=== PATIENT | male | born 1940 | race Caucasian/White ===

== ENCOUNTER → 2016-11-24 14:18 | Outpatient (CLI) | payer MEDICARE, OTHER ==
[2013-06-26 05:55] VITALS: BMI 23.6
[~2016-11-24 14:18] MED LIST: ASPIRIN 81 MG E81 MG PO; CALCIUM 600+D T1 TA1 PO; DOCUSATE S50 MG/5 ML PO; GLUCOSAMINE HC500 MG PO; MULTI-DAY VITAM1 TAB PO; NORCO 10/325 TA1 TA1 PO
== END | disposition home or self-care (01) ==
LOC: D.MRI 14:18
DX: M25.512 Pain in left shoulder (principal)

== ENCOUNTER 2017-08-16 05:14 | Day surgery (SDC) | payer MEDICARE, OTHER ==
[2017-08-13 11:41] LABS: BASOPHILS 0.4 % (0-2); EOSINOPHILS 1.4 % (0-7); HEMATOCRIT 47.5 % (42.0-54.0); HEMOGLOBIN 16.4 g/dL (13.5-17.5); IMMATURE GRANULOCYTES 0.2 % (0-5); LYMPHOCYTES 30.4 % (15-50); MCH 32.9 pg (26.0-34.0); MCHC 34.5 g/dL (31.0-37.0); MCV 95.4 fL (80.0-100.0); MEAN PLATELET VOLUME 9.3 fL (7.4-10.4); MONOCYTES 8.3 % (2-11); NEUTROPHILS 59.3 % (40-80); PLATELET COUNT 183 10x3/uL (130-400); RBC 4.98 10x6/uL (4.20-6.10); RDW 13.3 % (11.5-14.5); WBC 5.1 10x3/uL (4.8-10.8)
[2017-08-13 11:49] LABS: APTT 28.7 SECONDS (22.8-39.4); INR 1.03 (0.85-1.17); PROTIME 13.1 SECONDS (11.6-15.0)
[~2017-08-16] VITALS: Ht 175.3 cm; Wt 72.6 kg
--- NOTE | ~2017-08-16 | OP ---
PATIENT NAME: FRANCISCO SALAS MEDICAL RECORD: [id number] :44 LOCATION:ACE ADMISSION DATE: SURGEON: ANNA CUNNINGHAM MD DATE OF OPERATION: 08/16/2017 PREOPERATIVE DIAGNOSIS: Trigger finger, bilateral long finger. POSTOPERATIVE DIAGNOSIS: Trigger finger, bilateral long finger. PROCEDURE: Bilateral long finger trigger finger releases. SURGEON: Anna Cunningham MD ANESTHESIA: General. INTRAOPERATIVE COMPLICATIONS: None. SUMMARY OF PATHOLOGIC FINDINGS: The patient had a tight A1 calin in bilateral fingers consistent with diagnosis of bilateral trigger fingers. OPERATIVE SUMMARY IN DETAIL: After obtaining the appropriate orthopedic consents as well as anesthetic consultation, evaluation and clearance, the patient was brought to the operating room and placed on the operating table in supine position. After adequate general laryngeal mask was administered, tourniquet was placed about the proximal aspect of the left upper extremity. The Esmarch was used as a tourniquet on the right side. Bilateral upper extremities were prepped and draped in routine sterile fashion. Left arm was elevated and exsanguinated, tourniquet inflated to 350 mmHg. An incision was made directly over the A1 calin. The incision was taken directly down to the A1 calin and under direct visualization, the A1 calin was incised in its entirety, resulting in excellent excursion without triggering. The wound was irrigated and closed with 4-0 Prolene. The area was locally anesthetized with 0.25% Marcaine plain. Attention was then turned to the right upper extremity. Esmarch was then used as a tourniquet. The arm was exsanguinated. The Esmarch was clipped and again an incision was made directly over the A1 calin of the right long finger and taken down to the level of the A1 calin and under direct visualization, it was incised in its entirety as well, again good excursion was achieved without any snapping. Having completed this, this wound was likewise closed with 4-0 Prolene in interrupted fashion. The area was locally infiltrated with 0.25% Marcaine plain. Sterile dressings were applied to both upper extremities. Bilateral tourniquets were released. The patient was awakened and taken to recovery room in stable condition. All final needle and sponge counts were correct. TRANSINT:[id number] Voice Confirmation ID: [id number] DOCUMENT ID: [id number] ANNA CUNNINGHAM MD at 1518 CC: [id number] DICTATION DATE: 08/16/17 0816 LEASE EXAMINER: 08/16/17 1506 [facility] [place] 08/16/17 [place] [id number] [place] [address]
[~2017-08-16 05:14] MED LIST changes: +TESTOSTERON200 MG/ML IM
[2017-08-16 06:20] VITALS: BP 128/71; Ht 175.3 cm; Wt 72.6 kg
[2017-08-16] MEDS ORDERED: HYDROCODONE-APA1 TAB PO (08:14)
== END 2017-08-16 10:12 | disposition home or self-care (01) ==
LOC: D.OPS 05:14 → D.PAN 07:30 → D.OPS 10:12
PROVIDERS: Anesthesiology
DX: M65.332 Trigger finger, left middle finger (principal); M65.331 Trigger finger, right middle finger; Z01.812 Encounter for preprocedural laboratory examination

== ENCOUNTER 2017-12-06 11:35 | Inpatient (IN) | payer MEDICARE, OTHER ==
[~2017-12-06] VITALS: Ht 175.3 cm; Wt 70.8 kg
--- NOTE | ~2017-12-06 | HEMODYNAMI ---
PATIENT:FRANCISCO SALAS MEDICAL RECORD: [id number] : 44 [id number] ADMISSION DATE: 12/06/17 Generatedon:12/07/20178:33 Patient name: FRANCISCO SALAS Patient #: [id number] : 1940 Date of study: 12/07/2017 Page: Of Hemodynamic Procedure Report Patient Data Patient Demographics Procedure consent was obtained First Name: FRANCISCO Gender: Male Last Name: MARITZA : 1940 [facility] Initial: ERICH Age: 77 year(s) Patient #: [id number] Race: SSN: [id number] Additional ID: [id number] Contact details [address]: [address] [place] [address] State: [place] City: [place] Zip code: [address] Admission Admission Data Admission Date: 12/06/2017 Admission Time: 17:21 Arrival Date: 12/07/2017 Arrival Time: 17:21 Admit Source: Other Insurance Payor: Medicare Room #: D.2121 Procedure Procedure Types Cath Procedure Diagnostic Procedure [facility] w/Coronaries Sedation Charges Moderate Sedation up to 15 minutes PCI Procedure Coronary Stent Coronary Stent Initial Procedure Description Procedure Date Procedure Date: 12/07/2017 Procedure Start Time: 8:11 Procedure End Time: 8:31 Procedure Staff Name Function Gabino Ashby MD Performing Physician Adelita Levine RN Nurse Erica Boone RT Scrub Christiane Velasquez RT Monitor Indication Angina Procedure Data Cath Procedure Fluoroscopy Diagnostic fluoroscopy Total fluoroscopy Time: 5.7 time: 5.7 min min Diagnostic fluoroscopy Total fluoroscopy dose: 657 dose: 657 mGy mGy Contrast Material Contrast Material Type Amount (ml) Isovue 300 68 Entry Location Entry Primary Successful Side Size Upsize Upsize Entry Closure Neves ccessful Closure Location (Fr) 1 (Fr) 2 (Fr) Remarks Device Remarks Radial Right 6 Fr Mechanical artery Short Compression Estimated blood loss: 5 ml Diagnostic catheters Device Type Used For End Catheter Placement DIAGNOSTIC Kobe 110cm Multi-vessel 5Fr catheter ([id number]) Angiography Procedure Complications No complications Procedure Medications Medication Administration Route Dosage Oxygen NC 2 l/min Lidocaine 2% added to field 20 Heparin Flush Bag added to field 2 bags (1000units/500ml NS) 0.9% NaCl I.V. 100 ml/hr Cardizem I.V. drip 5 mg/hr (125mg/125ml NS) Radial Cocktail I.A. 1 syringe (Verapomil 2mg/Nitro 400mcg/Heparin 1500units) Versed I.V. 1 mg Fentanyl I.V. 50 mcg Versed I.V. 1 mg Fentanyl I.V. 50 mcg Versed I.V. 0.5 mg Fentanyl I.V. 50 mcg Heparin Bolus I.V. 7000 units Plavix P.O. 600 mg Hemodynamics Rest Heart Rate: 65 (bpm) Pressure Samples Time Site Value (mmHg) Purpose Heart Use Rate(bpm) 8:14 LV 148/21,41 Snapshot 69 8:15 AO 141/75(103) Pullback 57 Gradients Valve Time Site Site 2 Mean SEP/DFP Peak To Heart Use 1 (mmHg) (sec/min) Peak Rate (mmHg) (bpm) Aortic 8:15 LV AO 6 5 57 141/75(103) Calculations Valve P-P Mean Valve Index Valve Source Name Gradient Area Flow (cm2) Aortic 6 6 Snapshots Pre Cath Intra NCS Post Cath Vital Signs Time Heart Resp SPO2 etCO2 NIBP Rhythm Pain Sedation Rate (ipm) (%) (mmHg) (mmHg) Status Level (bpm) 7:57:31 60 16 97 0 122/62(83) NSR 0 (11) 10(A) , No pain 8:01:45 62 15 98 33 119/56(99) NSR 0 (11) 10(A) , No pain 8:05:57 56 13 93 30 110/56(87) NSR 0 (11) 10(A) , No pain 8:10:07 60 14 97 15 118/57(99) NSR 0 (11) 9(A) , No pain 8:14:21 67 16 97 24.7 113/53(95) NSR 0 (11) 9(A) , No pain 8:18:33 61 15 92 28.5 108/51(79) NSR 0 (11) 9(A) , No pain 8:22:45 65 14 94 33 107/48(88) NSR 0 (11) 9(A) , No pain 8:26:56 64 15 95 31.5 113/48(91) NSR 0 (11) 9(A) , No pain 8:31:08 71 15 98 24.7 118/55(85) NSR 0 (11) 10(A) , No pain Medications Time Medication Route Dose Verified Delivered Reason Notes Effectiveness by by 7:51:55 Cardizem I.V. 5 mg/hr Gabino Buffie Per physician rajinder nued (125mg/125ml NS) drip Rubens Levine RN from floor via smart pump to iv left arm. 7:54:35 Oxygen NC 2 l/min Gabino Buffie used for Rubens Levine RN procedure 7:54:41 Lidocaine 2% added 20ml Gabino Gabino for local to vial Rubens Ashby MD anesthetic field 7:54:47 Heparin Flush added 2 bags Gabino Gabino used for Bag to Rubens Ashby MD procedure (1000units/500ml field NS) 7:54:55 0.9% NaCl I.V. 100 Gabino Buffie Per physician Per n ew ml/hr Rubens Levine RN IV access to rt forearm. 8:05:05 Fentanyl I.V. 50 mcg Gabino Buffie for sedation Rubens Levine RN 8:05:57 Versed I.V. 1 mg Gabino Buffie for sedation Rubens Levine RN 8:13:17 Radial Cocktail I.A. 1 Gabino Gabino for (Verapomil syringe Rubens Ashby MD vasodilation 2mg/Nitro 400mcg/Heparin 1500units) 8:13:35 Versed I.V. 1 mg Gabino Buffie for sedation Rubens Levine RN 8:13:39 Fentanyl I.V. 50 mcg Gabino Buffie for sedation Rubens Levine RN 8:21:50 Versed I.V. 0.5 mg Gabino Buffie for sedation Rubens Levine RN 8:21:54 Fentanyl I.V. 50 mcg Gabino Buffie for sedation Rubens Levine RN 8:22:38 Heparin Bolus I.V. 7,000 Gabino Buffie for verif ied units Ashby MD Levine RN anticoagulation with dr ashby 8:32:24 Plavix P.O. 600 mg Gabino Ureña for Rubens Levine RN antiplatelet therapy Procedure Log Time Note 7:29:59 Diagnostic Cath Status : Elective 7:30:17 Indication : Angina 7:30:22 Christiane Ron RT(R) sent for patient. Start room use. 7:30:24 Time tracking: Regular hours (M-F 7:00 - 5:00) 7:30:29 Plan of Care:Hemodynamics will remain stable., Cardiac rhythm will remain stable., Comfort level will be maintained., Respiratory function will remain adequate., Patient/ family verbilizes understanding of procedure., Procedure tolerated without complication., Recovers from procedure without complications.. 7:30:50 Informed consent obtained and on chart 7:32:53 Admit Source: Other 7:32:55 Arrival Date: 12/07/2017 5:21:00 PM 7:33:08 Insurance Payor : Medicare 7:34:05 Patient received from Med II to [facility] 2 Alert and oriented. Tansferred to table in Supine position. 7:46:19 Warm blankets applied, and marbin hugger turned on for patient comfort. 7:46:20 Correct patient and procedure confirmed by team. 7:50:02 ECG and BP/O2 sat monitors applied to patient. 7:50:08 H&P Date Dictated: 12/07/2017 New H&P dictated by physician.. 7:50:09 Pre-procedure instructions explained to patient. 7:50:10 Pre-op teaching completed and patient verbalized understanding. 7:50:12 Family in patients room. 7:50:14 Patient NPO since Midnight. 7:50:17 Is the patient allergic to Iodine/contrast media? No. 7:50:18 Was the patient premedicated? No 7:50:23 Is patient on blood thinner?No 7:50:25 Patient diabetic? No. 7:50:29 Previous problem with sedation/anesthesia? No ? 7:50:31 Snore? Yes 7:50:32 Sleep apnea? No 7:50:33 Deviated septum? No 7:50:34 Opens mouth fully? Yes 7:50:35 Sticks out tongue? Yes 7:50:37 Airway obstruction? No ? 7:50:41 Dentures? No ? 7:50:46 Pre procedure: right dorsailis pedis pulse 1+ Palpable, but thready & weak; easily obliterated 7:50:48 Pre procedure: left dorsailis pedis pulse 1+ Palpable, but thready & weak; easily obliterated 7:50:50 Patient pain scale 0/10 ?. 7:51:16 IV patent on arrival in right forearm with 0.9% NaCl at O. 7:51:18 Lab results completed and on chart. 7:51:23 Right Radial & Right Groin area was prepped with chlora-prep and draped in sterile fashion 7:51:24 Alarms reviewed by R. N. 7:51:25 Sharps counted by scrub and verified by R.N. 7:51:55 Cardizem (125mg/125ml NS) 5 mg/hr I.V. drip was administered by Adelita Levine RN; Per physician; continued from floor via smart pump to iv left arm. 7:54:35 Oxygen 2 l/min NC was administered by Adelita Levine RN; used for procedure; 7:54:41 Lidocaine 2% 20ml vial added to field was administered by Gabino Ashby MD; for local anesthetic; 7:54:47 Heparin Flush Bag (1000units/500ml NS) 2 bags added to field was administered by Gabino Ashby MD; used for procedure; 7:54:55 0.9% NaCl 100 ml/hr I.V. was administered by Adelita Levine RN; Per physician; Per new IV access to rt forearm. 7:56:22 Vital chart was started 7:56:24 Baseline sample Acquired. 8:02:44 Rhythm: sinus rhythm 8:02:49 Full Disclosure recording started 8:02:55 Physician arrived 8:02:55 --------ALL STOP TIME OUT------ 8:02:55 Final Timeout: patient, procedure, and site verified with staff and physician. All members of the team are in agreement. 8:02:57 Right Radial & Right Groin site verified by team. 8:03:00 Physical assessment completed. ASA score P 2 - A patient with mild systemic disease as per Gabino Ashby MD. 8:03:03 Sedation plan: IV Moderate Sedation Medication:Versed, Fentanyl 8:03:11 Use device set Radial Dx or PCI 8:03:12 ACIST Syringe (93220) opened to sterile field. 8:03:13 Medline Cath Pack ([id number]) opened to sterile field. 8:03:13 Bag Decanter (2001S) opened to sterile field. 8:03:14 DIAGNOSTIC WIRE .035 260cm J wire (782936) opened to sterile field. 8:03:14 ACIST Hand Control (34341) opened to sterile field. 8:03:15 ACIST Manifold (45618) opened to sterile field. 8:03:15 Tegaderm 4 x 4 (1626W) opened to sterile field. 8:03:16 MBrace Wrist Support ([id number]) opened to sterile field. 8:03:17 NEEDLE Cook 21G 4cm Radial (V50432) opened to sterile field. 8:03:19 SHEATH 6Fr Prelude Radial ([id number]) opened to sterile field. 8:05:05 Fentanyl 50 mcg I.V. was administered by Adelita Levine RN; for sedation; 8:05:57 Versed 1 mg I.V. was administered by Adelita Levine RN; for sedation; 8:06:46 IV CATHETER 22g opened to sterile field. 8:10:36 Procedure started. 8:11:05 Local anesthetic to right radial artery with Lidocaine 2% by Gabino Ashby MD.INITIAL ACCESS ONLY 8:11:35 A 6 Fr Short sheath was inserted into the Right Radial artery 8:11:38 Baseline sample Acquired. 8:13:17 Radial Cocktail (Verapomil 2mg/Nitro 400mcg/Heparin 1500units) 1 syringe I.A. was administered by Gabino Ashby MD; for vasodilation; 8:13:25 A DIAGNOSTIC Kobe 110cm 5Fr catheter (373052) was advanced over the wire and used for Multi-vessel Angiography. 8:13:35 Versed 1 mg I.V. was administered by Adelita Levine RN; for sedation; 8:13:39 Fentanyl 50 mcg I.V. was administered by Adelita Levine RN; for sedation; 8:15:00 LV hemodynamics recorded. 8:15:01 LV gram done using CALDERON 8:15:04 Injector settings: Ml/sec: 5, Volume: 15, 8:15:36 EF : 50 % 8:16:55 LCA angiography performed. 8:18:37 RCA angiography performed. 8:18:45 Injector settings: Ml/sec: 3, Volume: 6, 8:19:42 Catheter removed. 8:21:50 Versed 0.5 mg I.V. was administered by Adelita Levine RN; for sedation; 8::54 Fentanyl 50 mcg I.V. was administered by Adelita Levine RN; for sedation; 8:22:05 GUIDE 6FR AR 1.0 catheter (OC0AP40) opened to sterile field. 8:22:17 INFLATOR Merit BasixCompak (RE5052) opened to sterile field. 8:22:18 BMW 300cm [place] 2 J wire ([id number]) opened to sterile field. 8:22:25 TUBING High Pressure Extension Tubing (Rubens) ([id number]) opened to sterile field. 8:22:38 Heparin Bolus 7,000 units I.V. was administered by Adelita Levine RN; for anticoagulation; verified with dr ashby 8:22:45 Proceeding to intervention. 8:22:52 6 Fr ar 1 guide catheter was inserted over the wire 8:22:56 bmw wire advanced. 8:23:40 Wire advanced across lesion. 8:27:40 Place stent Inflation Number: 1 A INTEGRITY OTW 3.5 X 26 stent ([id number]) was prepped and advanced across the Prox RCA. The stent was deployed at 14 JULIANNE for 0:10 (min:sec). 8:28:51 Stent catheter was removed intact over wire. 8:28:53 Wire removed. 8:28:54 Guide catheter removed. 8:29:00 TR BAND Standard ([id number]) opened to sterile field. 8:29:11 Sheath removed intact; hemostasis achieved with Mechanical Compression to the Right Radial artery. 8:29:13 Procedure ended.(Physican Out) 8:29:24 Fluoroscopy time 05.70 minutes. 8:29:28 Fluoroscopy dose: 657 mGy 8:29:28 Flurop Dose total: 657 8:29:33 Contrast amount:Isovue 300 68ml. 8:29:34 Sharps counted by scrub and verified by R.N. 8:29:38 TR band inflated with 10cc of air. 8:29:40 Insertion/operative site no bleeding no hematoma. 8:30:14 Post right radial artery:stable 8:30:15 Post Procedure Pulses reassessed and unchanged 8:30:18 Post procedure rhythm: unchanged. 8:30:21 Estimated blood loss: 5 ml 8:30:22 Post procedure instruction explained to patient.Patient verbalizes understanding. 8:30:23 Patient needs reinforcement of post procedure teaching. 8:30:47 Procedure type changed to Cath procedure, Diagnostic procedure, LHC, LHC w/Coronaries, Sedation Charges, Moderate Sedation up to 15 minutes, PCI procedure, Coronary Stent, Coronary Stent Initial 8:30:47 Procedure and supply charges have been captured, reviewed, submitted and are correct. 8:30:52 Procedure Complication : No complications 8:30:54 Vital chart was stopped 8:30:55 See physician's report for complete and final results. 8:31:31 Report given to [facility]. 8:31:34 Patient transfered to [facility] with Stretcher. 8:31:36 Procedure ended. 8:31:36 Full Disclosure recording stopped 8:31:47 ACC-PCI Only Patient was given prescriptions, or instructed by Gabino Ashby MD to start/continue the following medications upon discharge: Plavix 8:31:49 End room use (Document Last) 8:32:24 Plavix 600 mg P.O. was administered by Adelita Levine RN; for antiplatelet therapy; Intervention Summary Intervention Notes Time ActionType Lesion and Equipment Action# Pressure Duration Attributes Used 8:27:40 Place stent Prox RCA INTEGRITY 1 14 00:10 OTW 3.5 X 26 stent ([id number]) Device Usage Item Name Manufacture Quantity Catalog Number Hospital Part Current M inimal Lot# / Charge Number Stock Stock Serial# Code ACIST Syringe Acist 1 25634 000746 807822 097426 2 0 (56986) Medical Systems Inc Medline Cath Cardinal 1 [id number] 853787 10660 419082 5 Pack Health (YGZV72451) Bag Decanter Microtek 1 530450 37050 771925 5 () Medical Inc. DIAGNOSTIC WIRE St Dylan 1 607101 709021 251563 046660 3 0 .035 260cm J wire (943591) ACIST Hand Acist 1 58479 937448 164129 024393 5 Control (24227) Medical Systems Inc ACIST Manifold Acist 1 53369 472835 840203 889657 5 (34671) Medical Systems Inc Tegaderm 4 x 4 3M 1 1626W 897422 605552 750006 5 (1626W) MBrace Wrist Advanced 1 140-0250-00 174222 86198 267409 5 Support Vascular (082450316) Dynamics NEEDLE Cook 21G Cook Medical 1 S12562 997862 351524 546371 5 4cm Radial (T72213) SHEATH 6Fr Merit 1 [id number] 350296 838332 770739 5 Prelude Radial Medical ([id number]) IV CATHETER 22g B. Mo 1 3255180-42 503728 008534 201017 5 DIAGNOSTIC Terumo 1 405023 165914 132421 041411 5 Kobe 110cm 5Fr catheter (625883) GUIDE 6FR AR Medtronic 1 TY5EO64 143865 70281 509086 1 1.0 catheter (YK5PL47) INFLATOR Merit Merit 1 NY6565 261361 601689 243414 1 5 FilmLoopAcadia HealthcareGLWL Research Medical (AY9404) BMW 300cm Shrestha 1 [id number] 930645 662251 207579 5 [place] 2 J Vascular wire (3171296K) TUBING High Merit 1 [id number] 196967 48701 103882 1 0 Pressure Medical Extension Tubing (Ashby) (CZ3302Z) INTEGRITY OTW Medtronic 1 [id number] 773057 487248 4 [id number] 3.5 X 26 stent ([id number]) TR BAND Terumo 1 [id number] 002442 765558 866449 4 0 Standard (YFL36EIJ) Signature Audit [place] Stage Time Signature Unsigned Intra-Procedure 12/07/2017 Christiane Velasquez 8:33:35 AM RT(R) Signatures Monitor : Christiane Velasquez RT Signature : Date : Time : [facility] [address] [facility], [facility]
[~2017-12-06 11:35] MED LIST changes: +HYDROCODONE-APA1 TAB PO
[2017-12-06 12:24] LABS: BASOPHILS 0.4 % (0-2); EOSINOPHILS 1.2 % (0-7); HEMATOCRIT 53.1 % (42.0-54.0); HEMOGLOBIN 18.7 g/dL (13.5-17.5); IMMATURE GRANULOCYTES 0.3 % (0-5); LYMPHOCYTES 17.6 % (15-50); MCH 33.3 pg (26.0-34.0); MCHC 35.2 g/dL (31.0-37.0); MCV 94.7 fL (80.0-100.0); MEAN PLATELET VOLUME 9.7 fL (7.4-10.4); MONOCYTES 10.4 % (2-11); NEUTROPHILS 70.1 % (40-80); PLATELET COUNT 202 10x3/uL (130-400); RBC 5.61 10x6/uL (4.20-6.10); RDW 12.6 % (11.5-14.5); WBC 7.3 10x3/uL (4.8-10.8)
[2017-12-06 12:32] LABS: APTT 30.6 SECONDS (22.8-39.4); INR 0.99 (0.85-1.17); PROTIME 12.7 SECONDS (11.6-15.0)
[2017-12-06 12:33] LABS: D-DIMER-QUANTITATIVE 1.3 ug/mLFEU (0.20-0.54)
[2017-12-06 12:42] LABS: ALBUMIN 3.8 g/dL (3.4-5.0); ALKALINE PHOSPHATASE 84 U/L (46-116); ALT (SGPT) 23 U/L (10-68); BILIRUBIN - TOTAL 0.76 mg/dL (0.2-1.3); CALC OSMOLALITY 282 mosm/kg (275-300); CALCIUM 9.3 mg/dL (8.5-10.1); CARBON DIOXIDE 30.1 mmol/L (21.0-32.0); CHLORIDE - SERUM 102 mmol/L (98-107); CREATININE - SERUM 1.2 mg/dL (0.6-1.3); GLUCOSE 100 mg/dL (74-106); POTASSIUM - SERUM 4.4 mmol/L (3.5-5.1); PROTEIN - SERUM 8.2 g/dL (6.4-8.2); SODIUM 140 mmol/L (136-145); UREA NITROGEN 25 mg/dL (7-18); eGFR NON AFRICAN AMERICAN 63 mL/min (90-120)
[2017-12-06 12:52] LABS: CKMB 0.5 U/L (0.0-3.6); CREATINE KINASE 70 UL (21-232)
[2017-12-06 12:54] LABS: TROPONIN-I < 0.017 ng/mL (0.000-0.060)
[2017-12-06 18:42] VITALS: BP 136/68; Ht 175.3 cm; Wt 70.8 kg
[2017-12-06 18:46] LABS: CKMB 0.2 U/L (0.0-3.6); CREATINE KINASE 57 UL (21-232)
[2017-12-06 18:48] LABS: TROPONIN-I < 0.017 ng/mL (0.000-0.060)
[2017-12-07 00:02] LABS: CKMB 0.3 U/L (0.0-3.6); CREATINE KINASE 47 UL (21-232)
[2017-12-07 00:06] LABS: TROPONIN-I < 0.017 ng/mL (0.000-0.060)
[2017-12-07 00:39] VITALS: BP 109/64
[2017-12-07 05:33] LABS: CKMB 0.4 U/L (0.0-3.6); CREATINE KINASE 46 UL (21-232)
[2017-12-07 05:42] LABS: TROPONIN-I < 0.017 ng/mL (0.000-0.060)
[2017-12-07 06:11] VITALS: BP 126/57
[2017-12-07 08:17] VITALS: BP 113/59
[2017-12-07 11:43] VITALS: BP 110/55
[2017-12-07 15:36] VITALS: BP 122/67
[2017-12-07 20:47] VITALS: BP 127/59
[2017-12-08 05:08] VITALS: BP 119/58
[2017-12-08 07:07] LABS: BASOPHILS 0.4 % (0-2); EOSINOPHILS 1.3 % (0-7); HEMATOCRIT 52.2 % (42.0-54.0); HEMOGLOBIN 18.2 g/dL (13.5-17.5); IMMATURE GRANULOCYTES 0.1 % (0-5); LYMPHOCYTES 18.4 % (15-50); MCHC 34.9 g/dL (31.0-37.0); MCV 94.7 fL (80.0-100.0); MEAN PLATELET VOLUME 9.7 fL (7.4-10.4); MONOCYTES 8.8 % (2-11); PLATELET COUNT 241 10x3/uL (130-400); RBC 5.51 10x6/uL (4.20-6.10); RDW 12.6 % (11.5-14.5); WBC 8.3 10x3/uL (4.8-10.8)
[2017-12-08 07:23] LABS: ANION GAP 10.7 mmol/L (8-16); CALCIUM 8.9 mg/dL (8.5-10.1); CARBON DIOXIDE 28.3 mmol/L (21.0-32.0); CHOL - HDL RATIO 2.7 ratio (2.3-4.9); CREATININE - SERUM 1.2 mg/dL (0.6-1.3); LDL-HDL RATIO 1.5 ratio (1.5-3.5)
[2017-12-08 08:21] VITALS: BP 128/61
[2017-12-08] MEDS ORDERED: BETAPACE 80 MG80 MG PO (10:15)
[2017-12-08] MEDS ORDERED: PLAVIX75 MG PO (10:15)
[2017-12-08] MEDS ORDERED: PROTONIX40 MG PO (10:15)
[2017-12-08 11:37] VITALS: BP 121/63
== END 2017-12-08 13:20 | disposition home or self-care (01) | DRG 249 ==
LOC: OBSVTIME → D.OPS 11:35 → D.ER 11:35 → D.M2 17:21 → D.EDHOLD 17:21 → D.ER 17:21 → D.M2 17:41 → D.EDHOLD 17:41 → EDSTATUS 12-07 12:00 → OBSVTIME 12-07 12:20 → D.M2 12-07 12:30
PROVIDERS: Family Medicine; Internal Medicine Cardiovascular Disease; Internal Medicine Nephrology
PROC: B2111ZZ Fluoroscopy of Multiple Coronary Arteries using Low Osmolar Contrast (ICD-10-PCS; 2017-12-07)
PROC: B2151ZZ Fluoroscopy of Left Heart using Low Osmolar Contrast (ICD-10-PCS; 2017-12-07)
PROC: 02703DZ Dilation of Coronary Artery, One Artery with Intraluminal Device, Percutaneous Approach (ICD-10-PCS; principal; 2017-12-07 12:00)
PROC: 4A023N7 Measurement of Cardiac Sampling and Pressure, Left Heart, Percutaneous Approach (ICD-10-PCS; 2017-12-07 12:00)
DX: I25.10 Atherosclerotic heart disease of native coronary artery without angina pectoris (principal); N17.9 Acute kidney failure, unspecified; I48.91 Unspecified atrial fibrillation; E11.9 Type 2 diabetes mellitus without complications; R91.1 Solitary pulmonary nodule; Z85.46 Personal history of malignant neoplasm of prostate

== ENCOUNTER 2018-02-24 18:20 | Observation (INO) | payer MEDICARE, OTHER ==
[~2018-02-24] VITALS: Ht 175.3 cm; Wt 68.2 kg
--- NOTE | ~2018-02-24 | OP ---
PATIENT NAME: FRANCISCO SALAS MEDICAL RECORD: [id number] :44 LOCATION:[facility] ADMISSION DATE:02/24/18 SURGEON: ONELIA HANKS MD DATE OF OPERATION: 02/25/2018 PROCEDURES: 1. PTCA and stent of RCA. 2. Intravascular ultrasound of RCA. 3. Left heart catheterization. 4. Selective coronary angiography. 5. Left ventriculogram. INDICATION: Angina and coronary artery disease. PROCEDURE PERFORMED: After informed consent was obtained and after detailed explanation of risks, benefits as well as alternative therapies, the patient elected to proceed with angiogram and angioplasty. The right femoral area was prepped and draped in normal sterile fashion. Right femoral artery was cannulated via modified Seldinger technique with placement of 6-Citizen Of [place] sheath. All catheters exchanged through this sheath. FINDINGS: The left ventriculogram was performed in standard 30-degree CALDERON view, reveals good cardiac wall motion throughout all segments. Overall ejection fraction estimated 60%. SELECTIVE CORONARY ANGIOGRAPHY: 1. Left main is with no significant angiographic disease. 2. Left anterior descending has mild irregularities, but no flow-limiting stenosis. 3. The left circumflex has mild irregularities, but no flow-limiting stenosis. 4. The right coronary has greater than 80% in-stent restenosis, followed by a 70% stenosis after the stent confirmed by intravascular ultrasound. PTCA AND STENT OF THE RIGHT CORONARY: Stents used were 3.5 x 30 and 3.5 x 15, both Sidney stents, taken to 21 atmospheres. Result was 0% residual stenosis. OVERALL IMPRESSION: Successful PTCA and stent of the RCA going from 80% initial stenosis to 0% residual. TRANSINT:[id number] Voice Confirmation ID: [id number] DOCUMENT ID: [id number] ONELIA HANKS MD at 1752 CC: [id number] DICTATION DATE: 02/25/18 1039 SHOE TURNER: 02/25/18 1236 DIS IN 02/25/18 [place] [id number]
--- NOTE | ~2018-02-24 | HP ---
PATIENT: FRANCISCO CHAUDHRY MEDICAL RECORD: [id number] ACCOUNT: [id number] LOCATION:[facility] : 44 ADMISSION DATE: 02/24/18 HISTORY AND PHYSICAL EXAMINATION ADMITTING DIAGNOSES: 1. Angina. 2. Coronary artery disease. 3. Previous PTCA and stent. 4. Atrial fibrillation. 5. History of paroxysmal atrial fibrillation. HISTORY OF PRESENT ILLNESS: Mr. Chaudhry presents with anginal symptomatology times 2 weeks. He has a past history of coronary artery disease, PTCA and stent of his RCA in November of this year. He initially was angina free. After that, he began having some episodes of palpitations as well. He has a sand slinger operator on yesterday at 4 o'clock. He felt the palpitations come on and stay. He presents to the Emergency Room. He is in atrial fibrillation, initially a rapid ventricular response. He was on sotalol 40 mg b.i.d. previously. He got a sotalol 80 mg tablet in the Emergency Room last night. He is now still in atrial fibrillation; however, rate is controlled in the 70s. PHYSICAL EXAMINATION: GENERAL APPEARANCE: Well-nourished, well-developed, appears stated age. Level of distress, comfortable. PSYCHIATRIC: Mental status, alert, normal affect. Orientation, oriented to time, place and person. EYES: Lids and conjunctiva, noninjected. No discharge, no pallor. ENT: Lips, teeth, gums, normal dentition. Oropharynx, no cyanosis, no pallor. NECK: Carotid arteries, bilateral normal upstroke, no bruits, no thrills. JUGULAR VEINS: No jugular venous pressure or distention. CERVICAL LYMPH NODES: Nontender, nonenlarged. THYROID: Not enlarged. Nontender. No nodules. LUNGS: Respiratory effort, unlabored. CHEST: Normal curvature. No thoracic deformity. No chest wall tenderness. Percussion, resonant. Auscultation, clear. No wheezes, no rales, no rhonchi. CARDIOVASCULAR: Precordial exam, nondisplaced. No heaves or pericardial thrills. Rate and rhythm, regular. Heart sounds, normal S1, normal S2. No S3, no gallop, no rub. Systolic murmur, not heard. Diastolic murmur, not heard. EXTREMITIES: No cyanosis, no edema. Peripheral pulses, full and equal in all extremities, except as noted. No bruits appreciated. ABDOMEN: Soft, nondistended. Normal aorta. No bruit. Nontender. No masses. Liver, nontender, no hepatomegaly. Spleen, nontender, no splenomegaly. MUSCULOSKELETAL: No joint tenderness. No joint swelling. No erythema. NEUROLOGICAL: Normal gait, normal strength, normal tone. SKIN: Warm and dry. OVERALL IMPRESSION: Anginal symptomatology, atrial fibrillation with rapid ventricular response. At this time, I will proceed with repeat coronary angiography. Continue the increased sotalol dose at 80 mg b.i.d. He received 1 Xarelto last night. We will hold off on the Xarelto secondary to cardiac catheterization today. Further care depends upon findings of the catheterization. Since he went into the atrial fibrillation yesterday at 4 hours and received a dose of Xarelto, will safely be able to cardiovert him as well. HISTORY AND PHYSICAL [id number] FRANCISCO CHAUDHRY TRANSINT:[id number] Voice Confirmation ID: [id number] DOCUMENT ID: [id number] ONELIA HANKS MD at 1752 CC: [id number] DICTATION DATE: 02/25/18 0638 EMAIL CAMPAIGN SPECIALIST: 02/25/18 0749 DIS IN 02/25/18 [facility] [address] [place] [address]
--- NOTE | ~2018-02-24 | DS ---
PATIENT:FRANCISCO SALAS :44 MEDICAL RECORD: [id number] DISCHARGE SUMMARY ADMISSION DATE: 02/24/18 DISCHARGE DATE: 02/25/18 DISCHARGE DIAGNOSES: 1. Angina. 2. PTCA stent RCA this admission. 3. Paroxysmal atrial fibrillation. 4. Hypertension. HOSPITAL COURSE: Mr. Salas presents with anginal symptomatology as well as atrial fibrillation, underwent cardiac catheterization revealing significant disease of the RCA, underwent successful PTCA stent of the RCA, had an increase in his sotalol to 80 mg b.i.d. He had no further atrial fibrillation, was discharged home to continue his aspirin and Plavix. He will follow up with [facility] 1 month. TRANSINT:[id number] Voice Confirmation ID: [id number] DOCUMENT ID: [id number] ONELIA HANKS MD at 1752 CC: [id number] DICTATION DATE: 02/25/18 1002 PROFILE STITCHING MACHINE OPERATOR: 02/25/18 1301 DIS IN 02/25/18 [facility] [address] [place] [address]
--- NOTE | ~2018-02-24 | HEMODYNAMI ---
PATIENT:FRANCISCO SALAS MEDICAL RECORD: [id number] : 44 LOCATION:[facility] [address] [facility]# [id number] ADMISSION DATE: 02/24/18 Generatedon:02/25/201810:06 Patient name: FRANCISCO SALAS Patient #: [id number] : 1940 Date of study: 02/25/2018 Page: Of Hemodynamic Procedure Report Patient Data Patient Demographics Procedure consent was obtained First Name: FRANCISCO Gender: Male Last Name: MARITZA : 1940 [facility] Initial: ERICH Age: 77 year(s) Patient #: [id number] Race: SSN: [id number] Additional ID: [id number] Contact details [address]: [address] [place] [address] State: [place] City: [place] Zip code: [address] Past Medical History Allergies: No known allergies Admission Admission Data Admission Date: 02/24/2018 Admission Time: 20:32 Admit Source: Other Room #: 2125 Procedure Procedure Types Cath Procedure Diagnostic Procedure LHC LH w/Coronaries FFR/IVUS Intra-Coronary IVUS Initial Cardioversion External Sedation Charges Moderate Sedation up to 15 minutes PCI Procedure Coronary Stent Coronary Stent Initial Procedure Description Procedure Date Procedure Date: 02/25/2018 Procedure Start Time: 9:37 Procedure End Time: 10:01 Procedure Staff Name Function Gautam Jon RT Scrub Adelita Levine RN Nurse Ronald Lane MD Performing Physician Kev Wing RT Monitor Procedure Data Cath Procedure Fluoroscopy Diagnostic fluoroscopy Total fluoroscopy Time: 4.4 time: 4.4 min min Diagnostic fluoroscopy Total fluoroscopy dose: 569 dose: 569 mGy mGy Contrast Material Contrast Material Type Amount (ml) Isovue 300 109 Entry Location Entry Primary Successful Side Size Upsize Upsize Entry Closure Succes sful Closure Location (Fr) 1 (Fr) 2 (Fr) Remarks Device Remarks Femoral Right 5 Fr 6 Fr Exoseal artery Short Estimated blood loss: 10 ml Diagnostic catheters Device Type Used For End Catheter Placement MULTIPACK Pigtail 5 Fr Procedure catheter MULTIPACK JL 4.0 5Fr Procedure catheter MULTIPACK 3DRC 5Fr Procedure catheter Procedure Complications No complications Procedure Medications Medication Administration Route Dosage Oxygen etCO2 Nasal cannula 2 l/min Lidocaine 2% added to field 20 Heparin Flush Bag added to field 2 bags (1000units/500ml NS) 0.9% NaCl I.V. 100 ml/hr Radial Cocktail I.A. 1 syringe (Verapomil 2mg/Nitro 400mcg/Heparin 1500units) Versed I.V. 1 mg Fentanyl I.V. 50 mcg Versed I.V. 1 mg Fentanyl I.V. 50 mcg Fentanyl I.V. 50 mcg Heparin Bolus I.V. 4000 units Hemodynamics Rest Heart Rate: 58 (bpm) Pressure Samples Time Site Value (mmHg) Purpose Heart Use Rate(bpm) 9:42 LV 96/28,33 Snapshot 61 Snapshots Pre Cath Intra NCS Post Cath Vital Signs Time Heart Resp SPO2 etCO2 NIBP (mmHg) Rhythm Pain Sedation Rate (ipm) (%) (mmHg) Status Level (bpm) 8:57:30 60 12 97 27 138/57(103) NSR 0 (11) 10(A) , No pain 9:02:47 58 11 99 27.7 134/60(100) NSR 0 (11) 10(A) , No pain 9:07:30 57 15 99 29.2 117/65(85) NSR 0 (11) 10(A) , No pain 9:12:05 58 13 95 0 101/56(76) NSR 0 (11) 10(A) , No pain 9:16:37 57 14 97 29.2 108/63(77) NSR 0 (11) 10(A) , No pain 9:21:16 61 14 98 32.3 97/52(71) NSR 0 (11) 10(A) , No pain 9:25:50 55 15 96 0 103/56(68) NSR 0 (11) 10(A) , No pain 9:30:27 53 12 95 39 96/56(70) NSR 0 (11) 10(A) , No pain 9:35:01 53 16 96 40.5 86/56(71) NSR 0 (11) 10(A) , No pain 9:40:14 54 13 97 42 98/51(70) NSR 0 (11) 9(A) , No pain 9:45:24 58 15 100 27 126/64(100) NSR 0 (11) 9(A) , No pain 9:50:04 59 21 100 41.3 126/63(99) NSR 0 (11) 9(A) , No pain 9:54:47 63 14 100 40.5 111/58(77) NSR 0 (11) 10(A) , No pain 9:59:46 62 18 100 18 Measuring NSR 0 (11) 10(A) , No pain 10:00:00 63 18 100 17.2 109/60(92) NSR 0 (11) 10(A) , No pain Medications Time Medication Route Dose Verified Delivered Reason Note s Effectiveness by by 9:08:29 Oxygen etCO2 2 l/min Ronald Ureña used for Nasal Ariana Levine RN procedure cannula 9:08:36 Lidocaine 2% added 20ml Ronald Cardenas for local to vial Ariana Lane MD anesthetic field 9:08:43 Heparin Flush added 2 bags Ronald Cardenas used for Bag to Ariana Lane MD procedure (1000units/500ml field NS) 9:08:52 0.9% NaCl I.V. 100 Ronald Ureña Per physician ml/hr Ariana Levine RN 9:10:57 Radial Cocktail I.A. 1 Ronald Cardenas for (Verapomil syringe Ariana Lane MD vasodilation 2mg/Nitro 400mcg/Hepari 9:32:32 Versed I.V. 1 mg Ronald Ureña for sedation Ariana Levine RN 9:32:39 Fentanyl I.V. 50 mcg Ronald Ureña for sedation Ariana Levine RN 9:35:43 Versed I.V. 1 mg Ronald Montesie for sedation Ariana Levine RN 9:35:47 Fentanyl I.V. 50 mcg Ronald Ureña for sedation Ariana Levine RN 9:40:48 Fentanyl I.V. 50 mcg Ronald Montesie for sedation Ariana Levine RN 9:47:41 Heparin Bolus I.V. 4000 Ronald Ureña for veri fied units Ariana Levine RN anticoagulation with dr lane Procedure Log Time Note 8:25:24 Informed consent obtained and on chart 8:25:28 Admit Source: Other 8:25:45 Diagnostic Cath status Elective 8:25:47 Time tracking: Regular hours (M-F 7:00 - 5:00) 8:25:51 Plan of Care:Hemodynamics will remain stable., Cardiac rhythm will remain stable., Comfort level will be maintained., Respiratory function will remain adequate., Patient/ family verbilizes understanding of procedure., Procedure tolerated without complication., Recovers from procedure without complications.. 8:39:27 Adelita Levine RN sent for patient. Start room use. 8:51:49 Patient received from PCU to CCL 1 Alert and oriented. Tansferred to table in Supine position. 8:51:51 Correct patient and procedure confirmed by team. 8:51:51 Warm blankets applied, and marbin hugger turned on for patient comfort. 8:51:52 ECG and BP/O2 sat monitors applied to patient. 8:56:38 Vital chart was started 9:07:24 Baseline sample Acquired. 9:07:30 Rhythm: sinus rhythm 9:07:33 Full Disclosure recording started 9:07:43 H&P Date Dictated: 02/24/2018 Within 30 days and on chart.. 9:07:45 Pre-op teaching completed and patient verbalized understanding. 9:07:45 Pre-procedure instructions explained to patient. 9:07:47 Family in patients room. 9:07:48 Patient NPO since Midnight. 9:07:54 Patient allergic to No known allergies 9:07:56 Is patient on blood thinner?Yes 9:07:56 Is the patient allergic to Iodine/contrast media? No. 9:08:12 ACC The patient was administered the following blood thiners within the last 24 hours: ACCPlavix, Xarelto 9:08:15 Patient diabetic? No. 9:08:18 Previous problem with sedation/anesthesia? No ? 9:08:22 Snore? Yes 9:08:23 Sleep apnea? No 9:08:24 Opens mouth fully? Yes 9:08:24 Deviated septum? No 9:08:25 Sticks out tongue? Yes 9:08:27 Airway obstruction? No ? 9:08:29 Oxygen 2 l/min etCO2 Nasal cannula was administered by Adelita Levine RN; used for procedure; 9:08:30 Dentures? No ? 9:08:32 Modified Simon's test Ulnar < 7 seconds 9:08:34 Patient pain scale 0/10 ?. 9:08:36 Lidocaine 2% 20ml vial added to field was administered by Ronald Lane MD; for local anesthetic; 9:08:37 IV patent on arrival in left forearm with 0.9% NaCl at O. 9:08:43 Heparin Flush Bag (1000units/500ml NS) 2 bags added to field was administered by Ronald Lane MD; used for procedure; 9:08:52 0.9% NaCl 100 ml/hr I.V. was administered by Adelita Levine RN; Per physician; 9::08 Lab Result : Hemoglobin 14.5 g/dl 9:: Lab Result : Hematocrit 41.9 % 9::08 Lab Result : BUN 29 mg/dl 9::08 Lab Result : Creatinine 1.1 mg/dl 9:09:10 Lab results completed and on chart. 9:09:12 Right Radial & Right Groin area was prepped with chlora-prep and draped in sterile fashion 9:09:13 Alarms reviewed by R. N. 9:09:14 Sharps counted by scrub and verified by R.N. 9:09:16 Use device set Radial Dx or PCI 9:09:17 Bag Decanter (2002) opened to sterile field. 9:09:17 Medline Cath Pack ([id number]) opened to sterile field. 9:09:17 ACIST Syringe (04516) opened to sterile field. 9:09:18 ACIST Hand Control (94738) opened to sterile field. 9:09:18 DIAGNOSTIC WIRE .035 260cm J wire (592942) opened to sterile field. 9:09:19 Tegaderm 4 x 4 (1626W) opened to sterile field. 9:09:19 ACIST Manifold (85409) opened to sterile field. 9:09:20 SHEATH 6Fr Prelude Radial ([id number]) opened to sterile field. 9:09:20 MBrace Wrist Support ([id number]) opened to sterile field. 9:10:57 Radial Cocktail (Verapomil 2mg/Nitro 400mcg/Heparin 1500units) 1 syringe I.A. was administered by Ronald Lane MD; for vasodilation; 9:13:09 Zero performed for pressure channel P1 9:31:55 --------ALL STOP TIME OUT------ 9:31:56 Final Timeout: patient, procedure, and site verified with staff and physician. All members of the team are in agreement. 9:32:00 Right Radial & Right Groin site verified by team. 9:32:03 Physical assessment completed. ASA score P 2 - A patient with mild systemic disease as per Ronald Lane MD. 9:32:05 Sedation plan: IV Moderate Sedation Medication:Versed, Fentanyl 9:32:32 Versed 1 mg I.V. was administered by Adelita Levine RN; for sedation; 9:32:39 Fentanyl 50 mcg I.V. was administered by Adelita Levine RN; for sedation; 9:34:19 IV Extension Set opened to sterile field. 9:35:43 Versed 1 mg I.V. was administered by Adelita Levine RN; for sedation; 9:35:47 Fentanyl 50 mcg I.V. was administered by Adelita Levine RN; for sedation; 9:37:03 Procedure started. 9:37:07 Local anesthetic to right radial artery with Lidocaine 2% by Ronald Lane MD.INITIAL ACCESS ONLY 9:40:05 SHEATH 5Fr Prelude ([id number]) opened to sterile field. 9:40:09 Use device set Multipack Set 9:40:11 DIAGNOSTIC Multipack 5Fr catheter set (NW7285) opened to sterile field. 9:40:28 unable to gain radial access. Moving to femoral approach. 9:40:31 Local anesthetic to right femoral artery with Lidocaine 2% by Ronald Lane MD.ADDITIONAL ACCESS 9:40:48 Fentanyl 50 mcg I.V. was administered by Adelita Levine RN; for sedation; 9:42:25 A 5 Fr sheath was inserted into the Right Femoral artery 9:42:35 A MULTIPACK Pigtail 5 Fr catheter was advanced over the wire and used for Procedure. 9:42:58 LV gram done using CALDERON 9:43:00 Injector settings: Ml/sec: 10, Volume: 20, 9:43:01 LV hemodynamics recorded. 9:43:12 EF : 40 % 9:43:25 Catheter removed. 9:43:31 A MULTIPACK JL 4.0 5Fr catheter was advanced over the wire and used for Procedure. 9:43:55 LCA angiography performed. 9:44:34 Catheter exchanged over wire. 9:44:40 A MULTIPACK 3DRC 5Fr catheter was advanced over the wire and used for Procedure. 9:45:12 RCA angiography performed. 9:45:35 SHEATH Prelude 6Fr 0.035 ([id number]-4B-71-035) opened to sterile field. 9:45:35 INFLATOR Merit BasixCompak (FY9093) opened to sterile field. 9:45:39 CHOICE PT Extra Support 182cm wire ([id number]) opened to sterile field. 9:46:51 GUIDE 6FR 3DRC catheter ([id number]) opened to sterile field. 9:47:00 Catheter removed. 9:47:07 Sheath upsized to a 6 Fr Short. 9:47:12 6 Fr 3drc guide catheter was inserted over the wire 9:47:41 Heparin Bolus 4000 units I.V. was administered by Adelita Levine RN; for anticoagulation; verified with dr lane 9:47:55 choice pt es wire advanced. 9:48:36 Wire advanced across lesion. 9:49:46 Place stent Inflation Number: 1 A TARA RX 3.5 x 30 stent ([id number]) was prepped and advanced across the Prox RCA. The stent was deployed at 13 JULIANNE for 0:10 (min:sec). 9:50:46 Stent catheter was removed intact over wire. 9:51:22 IVUS catheter advanced over wire. 9:53:08 [place] IVUS Catheter (10861Q) opened to sterile field. 9:53:11 IVUS pass to RCA lesion performed. 9:53:12 IVUS catheter removed over wire. 9:53:57 Inflation number: 2 The stent balloon was then re-inflated across the Prox RCA to 21 JULIANNE for 0:10 (min:sec). 9:54:00 Stent catheter was removed intact over wire. 9:55:48 Place stent Inflation Number: 3 A TARA RX 3.5 x 15 stent ([id number]) was prepped and advanced across the Prox RCA. The stent was deployed at 21 JULIANNE for 0:10 (min:sec). 9:58:37 Stent catheter was removed intact over wire. 9:58:38 Wire removed. 9:58:39 Guide catheter removed. 9:58:43 EXOSEAL 6Fr (EX600) opened to sterile field. 9:58:51 Sheath removed intact; hemostasis achieved with Exoseal to the Right Femoral artery. 9:58:54 Procedure ended.(Physican Out) 9:59:11 Fluoroscopy time 04.40 minutes. 9:59:16 Fluoroscopy dose: 569 mGy 9:59:16 Flurop Dose total: 569 9:59:23 Contrast amount:Isovue 300 109ml. 9:59:24 Sharps counted by scrub and verified by R.N. 9:59:26 Insertion/operative site no bleeding no hematoma. 9:59:28 Post-op/insertion site Right Femoral artery dressed using a 4 x 4 and Tegaderm. 9:59:31 Post right femoral artery:stable, soft, clean and dry 9:59:33 Post Procedure Pulses reassessed and unchanged 9:59:41 Post-procedure physical assessment completed. ASA score P 2 - A patient with mild systemic disease as per Ronald Lane MD. 9:59:43 Post procedure rhythm: unchanged. 9:59:46 Estimated blood loss: 10 ml 9:59:48 Patient needs reinforcement of post procedure teaching. 9:59:48 Post procedure instruction explained to patient.Patient verbalizes understanding. 10:00:00 Procedure type changed to Cath procedure, Diagnostic procedure, LHC, LHC w/Coronaries, FFR/IVUS, Intra-Coronary IVUS Initial, Cardioversion External, Sedation Charges, Moderate Sedation up to 15 minutes, PCI procedure, Coronary Stent, Coronary Stent Initial 10:00:56 Procedure and supply charges have been captured, reviewed, submitted and are correct. 10:00:58 Procedure Complication : No complications 10:01:00 See physician's report for complete and final results. 10:01:00 Vital chart was stopped 10:01:02 Report given to Pre/Post Procedure Room. 10:01:04 Patient transfered to Pre/Post Procedure Room with Stretcher. 10:01:06 Full Disclosure recording stopped 10:01:06 Procedure ended. 10:01:10 End room use (Document Last) 10:02:16 FEMSTOP Gold (S64940) opened to sterile field. 10:02:30 Femstop placed over the right femoral artery at 140 mmHg. Hemostasis achieved. Intervention Summary Intervention Notes Time ActionType Lesion and Equipment Used Action# Pressure Duration Attributes 9:49:46 Place stent Prox RCA TARA RX 3.5 x 1 13 00:10 30 stent ([id number]) 9:53:57 Reinflate Prox RCA TARA RX 3.5 x 2 21 00:10 stent 30 stent balloon ([id number]) 9:55:48 Place stent Prox RCA TARA RX 3.5 x 3 21 00:10 15 stent ([id number]) Device Usage Item Name Manufacture Quantity Catalog Number Hospital Part Current Minimal Lot# / Charge Number Stock Stock Serial# Code ACIST Syringe Acist 1 48460 705837 802703 594925 20 (26674) Medical Systems Inc Medline Cath Cardinal 1 [id number] 404296 78819 441664 5 Pack Health ([id number]) Bag Decanter Microtek 1 2001S 889784 00616 832086 5 (2001S) Medical Inc. DIAGNOSTIC WIRE St Dylan 1 772535 565045 361496 952234 30 .035 260cm J wire (095304) ACIST Hand Acist 1 46971 281216 884857 975360 5 Control (69399) Medical Systems Inc ACIST Manifold Acist 1 99198 987720 564973 928963 5 (07140) Medical Systems Inc Tegaderm 4 x 4 3M 1 1626W 676159 747001 808948 5 (1626W) MBrace Wrist Advanced 1 140-0250-00 049423 84911 240409 5 Support Vascular ([id number]) Dynamics SHEATH 6Fr Merit 1 [id number] 339532 231682 750536 5 Prelude Radial Medical ([id number]) IV Extension Hospira 1 45628-53 628832 32870 651348 5 Set SHEATH 5Fr Merit 1 [id number] 944166 879441 111547 5 Prelude Medical ([id number]) DIAGNOSTIC Cardinal 1 ZZ7054 118678 85458 202268 30 Multipack 5Fr Health catheter set (JM6959) MULTIPACK Cardinal 1 521519 5 Pigtail 5 Fr Health catheter MULTIPACK JL Cardinal 1 362496 5 4.0 5Fr Health catheter MULTIPACK 3DRC Cardinal 1 061029 5 5Fr catheter Health INFLATOR Merit Merit 1 GQ7899 550019 438501 447720 15 BasixCompak Medical ([id number]) SHEATH Prelude Merit 1 YAK-1W-[id number] 065215 3510355 978099 5 6Fr 0.035 Medical (VVL-4T-89-035) CHOICE PT Extra Hooper 1 [id number] 924766 655223 731368 5 Support 182cm Scientific wire ([id number]) GUIDE 6FR 3DRC Medtronic 1 MA73FNL 495384 195280 952344 1 catheter (WQ74CHI) TARA RX 3.5 x Medtronic 1 [id number] 495882 5879599 397824 5 [id number] 30 stent ([id number]) [place] 1 [id number] 088357 369204 812597 8 [place] IVUS Catheter (59517P) TARA RX 3.5 x Medtronic 1 [id number] 246316 0158403 360933 5 [id number] 15 stent ([id number]) EXOSEAL 6Fr Cardinal 1 EX600 076354 582284 796329 10 (EX600) Health FEMSTOP Gold St Dylan 1 B80001 139523 044604 098066 5 ([id number]) Signature Audit Rhine Stage Time Signature Unsigned Intra-Procedure 02/25/2018 Kev Wing 10:06:30 AM RT(R) Signatures Monitor : Kev Wing RT Signature : Date : Time : [place] [id number] [facility] [place] [address]
[~2018-02-24 18:20] MED LIST changes: +BETAPACE 80 MG80 MG PO; +PLAVIX75 MG PO; +PROTONIX40 MG PO
[2018-02-24 19:04] LABS: BASOPHILS 0.2 % (0-2); EOSINOPHILS 1.8 % (0-7); HEMATOCRIT 41.9 % (42.0-54.0); HEMOGLOBIN 14.5 g/dL (13.5-17.5); LYMPHOCYTES 29.3 % (15-50); MCH 31.7 pg (26.0-34.0); MCHC 34.6 g/dL (31.0-37.0); MCV 91.5 fL (80.0-100.0); MEAN PLATELET VOLUME 9.1 fL (7.4-10.4); MONOCYTES 14.1 % (2-11); NEUTROPHILS 54.6 % (40-80); PLATELET COUNT 211 10x3/uL (130-400); RBC 4.58 10x6/uL (4.20-6.10); RDW 14.7 % (11.5-14.5); WBC 5.6 10x3/uL (4.8-10.8)
[2018-02-24 19:17] LABS: ALBUMIN 3.4 g/dL (3.4-5.0); ALKALINE PHOSPHATASE 83 U/L (46-116); ALT (SGPT) 26 U/L (10-68); CALC OSMOLALITY 292 mosm/kg (275-300); CALCIUM 8.6 mg/dL (8.5-10.1); CARBON DIOXIDE 30.3 mmol/L (21.0-32.0); CHLORIDE - SERUM 106 mmol/L (98-107); CREATININE - SERUM 1.1 mg/dL (0.6-1.3); GLUCOSE 126 mg/dL (74-106); PROTEIN - SERUM 6.9 g/dL (6.4-8.2); SODIUM 143 mmol/L (136-145); UREA NITROGEN 29 mg/dL (7-18); eGFR NON AFRICAN AMERICAN 69 mL/min (90-120)
[2018-02-24 19:21] LABS: CREATINE KINASE 178 UL (21-232)
[2018-02-24 19:24] LABS: TROPONIN-I < 0.017 ng/mL (0.000-0.060)
[2018-02-24 20:00] VITALS: BP 113/71
[2018-02-25 02:05] VITALS: BP 117/60
[2018-02-25 04:00] VITALS: BP 117/60
[2018-02-25 08:03] VITALS: BP 118/53
[2018-02-25 08:35] VITALS: BP 117/60; Ht 175.3 cm; Wt 68.2 kg
== END 2018-02-25 14:05 | disposition home or self-care (01) ==
LOC: D.ER 18:20 → D.M2 20:32 → OBSVTIME 20:32 → D.CLR 02-25 10:33
PROVIDERS: Family Medicine
DX: I25.119 Atherosclerotic heart disease of native coronary artery with unspecified angina pectoris (principal); I48.0 Paroxysmal atrial fibrillation; I10 Essential (primary) hypertension; Z01.812 Encounter for preprocedural laboratory examination
CPT/HCPCS: 93458; 92978; C9600

== ENCOUNTER → 2018-06-17 12:38 | Outpatient (CLI) | payer MEDICARE, OTHER ==
[2018-02-25 08:35] VITALS: BMI 22.2
== END | disposition home or self-care (01) ==
LOC: D.CT 06-14 10:00
DX: R91.1 Solitary pulmonary nodule (principal)

== ENCOUNTER 2018-11-16 09:09 | Inpatient (IN) | payer MEDICARE, OTHER ==
[~2018-11-16] VITALS: Ht 175.3 cm; Wt 69.5 kg
[2018-11-16] VITALS (12 sets, daily range): BP systolic 103–152; BP diastolic 46–77; BMI 22.6
[2018-11-16] MEDS ORDERED: ELIQUIS5 MG PO (09:20)
[2018-11-16] MEDS ORDERED: FEROCON CAPSUL1 EACH (09:20)
[2018-11-16] MEDS ORDERED: LIPITOR20 MG PO (09:20)
[2018-11-16] MEDS ORDERED: PEPCID AC20 MG PO (09:21)
[2018-11-16 10:05] LABS: BASOPHILS 0.6 % (0-2); EOSINOPHILS 0.8 % (0-7); HEMOGLOBIN 12.9 g/dL (13.5-17.5); IMMATURE GRANULOCYTES 0.2 % (0-5); MCH 29.6 pg (26.0-34.0); MCHC 33.1 g/dL (31.0-37.0); MCV 89.4 fL (80.0-100.0); MEAN PLATELET VOLUME 9.5 fL (7.4-10.4); MONOCYTES 10.8 % (2-11); NEUTROPHILS 64.6 % (40-80); PLATELET COUNT 218 10x3/uL (130-400); RBC 4.36 10x6/uL (4.20-6.10); RDW 15.7 % (11.5-14.5); WBC 5.1 10x3/uL (4.8-10.8)
[2018-11-16 10:20] LABS: ALBUMIN 3.5 g/dL (3.4-5.0); ANION GAP 12.3 mmol/L (8-16); BILIRUBIN - TOTAL 0.34 mg/dL (0.2-1.3); CALCIUM 8.5 mg/dL (8.5-10.1); CARBON DIOXIDE 27.4 mmol/L (21.0-32.0); CREATININE - SERUM 1.2 mg/dL (0.6-1.3); POTASSIUM - SERUM 4.7 mmol/L (3.5-5.1); PROTEIN - SERUM 6.5 g/dL (6.4-8.2)
[2018-11-16 10:59] LABS: INR 1.19 (0.85-1.17); PROTIME 14.6 SECONDS (11.6-15.0)
--- NOTE | 2018-11-16 11:34 | NUR ---
PT LEAVING THE ED AT THIS TIME, BEING TRANSPORTED TO [facility]. [facility] FOR ORDERED SCAN. NO SIGNS OF DISTRESS NOTED WHEN LEAVING ED.
--- NOTE | 2018-11-16 13:15 | NUR ---
PT RECIEVED. VSS. ASSESSMENT COMPLETE PER FLOW SHEET REFER FOR FINDINGS. SANA AT BEDSIDE GIVEN UDPATE.
[2018-11-16 13:30] LABS: BASOPHILS 0.4 % (0-2); EOSINOPHILS 0.6 % (0-7); HEMATOCRIT 39.1 % (42.0-54.0); HEMOGLOBIN 12.9 g/dL (13.5-17.5); IMMATURE GRANULOCYTES 0.2 % (0-5); LYMPHOCYTES 28.8 % (15-50); MCH 29.8 pg (26.0-34.0); MCV 90.3 fL (80.0-100.0); MEAN PLATELET VOLUME 9.2 fL (7.4-10.4); MONOCYTES 11.4 % (2-11); NEUTROPHILS 58.6 % (40-80); PLATELET COUNT 205 10x3/uL (130-400); RBC 4.33 10x6/uL (4.20-6.10); RDW 15.8 % (11.5-14.5); WBC 5.5 10x3/uL (4.8-10.8)
--- NOTE | 2018-11-16 14:12 | NUR ---
CALLED DR KATE OFFICE IN [facility] TO CONSULT AWAITING CALL BACK
--- NOTE | 2018-11-16 15:20 | NUR ---
DR LEVY AT BEDSIDE UPDATE GIVEN NEW ORDERS RECEIVED
--- NOTE | 2018-11-16 17:20 | NUR ---
DR KATE AT BEDSIDE. GIVEN UPDATE. NEW ORDERS RECEIVED. FAMILY GIVEN UPDATE.
--- NOTE | 2018-11-16 18:21 | MORECARE ---
CASE MANAGEMENT DISCHARGE SUMMARY PATIENT: FRANCISCO SALAS UNIT: [id number] ADM DATE: 11/16/18 AGE: 78 : 42 SEX: M ROOM/BED: D.2308 AUTHOR: KEILA VEGA PHYSICIAN: REFERRING PHYSICIAN: LILIBETH RODRÍGUEZ MD DATE OF SERVICE: 11/16/18 Discharge Plan Patient Name: FRANCISCO SALAS [facility] [facility] 1940 Planned Disposition: Anticipated Discharge Date: Discharge Date: Expected LOS: Initial Reviewer: [email or web address] Initial Review Date: 11/16/2018 Generated: 11/16/18 7:20 pm Patient Name: FRANCISCO SALAS Page 46435 at 1821 All edits/amendments must be made on the electronic document DICTATION DATE: 11/16/181819 POISING INSPECTOR: SCOT 11/16/181819 RPT#: [id number] DC DATE: STATUS: ADM IN [facility] [address] [place] [address] END OF REPORT
--- NOTE | 2018-11-16 18:27 | MORECARE ---
CASE MANAGEMENT DISCHARGE SUMMARY PATIENT: FRANCISCO SALAS UNIT: [id number] ADM DATE: 11/16/18 AGE: 78 : 42 SEX: M ROOM/BED: D.2308 AUTHOR: SILVIA,DOC PHYSICIAN: REFERRING PHYSICIAN: LILIBETH RODRÍGUEZ MD DATE OF SERVICE: 11/16/18 Discharge Plan Patient Name: FRANCISCO SALAS Facility: [facility]:[place] : 1940 Planned Disposition: Anticipated Discharge Date: Discharge Date: Expected LOS: Initial Reviewer: [email or web address] Initial Review Date: 11/16/2018 Generated: 11/16/18 7:27 pm Comments DCP- Discharge Planning Updated by [email or web address]: Bryanna Jansen on 11/16/18 5:[address] Patient Name: FRANCISCO SALAS Admission Status: ER Accout number: [id number] Admission Date: 11-16-2018 : 1940 Admission Diagnosis: Attending: LILIBETH ANAYA Current LOS: 1 Anticipated DC Date: Planned Disposition: Primary Insurance: MEDICARE A & B Discharge Planning Comments: CM met with patient and spouse at bedside. Patient states he lives at home with his spouse (Sana). He plans on returning to their home upon discharge. He states he feels safe at his home. He states he will have family drive him home upon discharge. He denies any discharge needs at this time. CM will continue to follow and assist as needed with discharge planning / needs. Tightening Machine Operator: Bryanna Jansen DCPIA - Discharge Planning Initial Assessment Updated by [email or web address]: Bryanna Jansen on 11/16/18 6:22 pm * Is the patient Alert and Oriented? Yes * How many steps to enter\exit or inside your home? * PCP LEVY * Pharmacy [facility] * Preadmission Environment Home with Family * ADLs Independent * Equipment None * List name and contact numbers for known caregivers / representatives who currently or will assist patient after discharge: SANA SALAS - SPOUSE - [phone], * Verbal permission to speak to the caregivers and representatives has been obtained from the patient. Yes * Community resources currently utilized None * Additional services required to return to the preadmission environment? No * Can the patient safely return to the preadmission environment? Yes * Has this patient been hospitalized within the prior 30 days at any hospital? No Last DP export: 11/16/18 5:20 pm Patient Name: FRANCISCO SALAS Page 44545 at 1827 All edits/amendments must be made on the electronic document DICTATION DATE: 11/16/181825 CUSTOMER SERVICE REP: SCOT 11/16/181825 RPT#: [id number] DC DATE: STATUS: ADM IN [facility] [address] [place] [address] END OF REPORT
--- NOTE | 2018-11-16 19:30 | NUR ---
Dr Juarez at bedside for EGD, patient tolerating well with no s/s of difficulties.
--- NOTE | 2018-11-16 19:40 | NUR ---
Received patient resting in bed with eyes open, assessment completed per flowsheet. Patient AO x4, calm and cooperative. S1/S2 noted Sinus Aniceto on telemetry with HR 58, rythmic and regular. Breathing is even/unlaobred on room air with O2 sat 96%, lung sounds clear throughout. Abdomen is round/firm with bowel sounds active x4, tender. Full ROM all extremities with all pulses palpable, cap refill < 3 sec and skin warm/dry. No bleeding observed, HR/BP stable at this time. Denies pain or other needs, see flowsheet for details. All VSS and will continue to monitor.
--- NOTE | 2018-11-16 21:00 | NUR ---
Patient laying in bed with eyes open, no c/o pain or discomfort at this time. Discussed plan of care/medications with patient and , all questions answered to satisfaction. No further needs and will continue to monitor.
[2018-11-16 22:43] LABS: HEMATOCRIT 34.8 % (42.0-54.0); HEMOGLOBIN 11.4 g/dL (13.5-17.5)
--- NOTE | 2018-11-16 23:10 | NUR ---
Reassessment completed per flowsheet, no changes noted from previous assessment. S1/S2 noted Sinus Aniceto on telemetry with HR 59, rythmic and regular. Breathing is even/unlabored on room air with o2 sat 99%, lung sounds clear throughout. Abdomen is round/firm with bowel sounds active x4, tender. No bleeding observed, all pulses palpable with cap refill < 3 sec. Dwenies pain or other needs at this time, see flowsheet for details. All VSS and will continue to monitor.
[2018-11-17] VITALS (17 sets, daily range): BP systolic 108–137; BP diastolic 47–61; BMI 22.4
--- NOTE | 2018-11-17 01:00 | NUR ---
Patient sleeping in bed with eyes closed, no s/s of distress/bleeding noted. All VSS and will continue to monitor.
--- NOTE | 2018-11-17 03:10 | NUR ---
Reassessment completed per flowsheet, no changes from previous assessment. S1/S2 noted Sinus Aniceto on telemetry with HR 59, rythmic and regular. Breathing is even/unlabored on room air with O2 sat 96%, lung sounds clear throughout. Abdomen is round/firm with bowel sounds active x4, tender. No bleeding/discomfort noted, patient on NPO status. All pulses palpable with cap refill < 3 sec, skin warm/dry. Denies pain or other needs at this time, see flowsheet for details. All VSS and will continue to monitor.
[2018-11-17 03:57] LABS: BASOPHILS 0.6 % (0-2); HEMATOCRIT 35.2 % (42.0-54.0); HEMOGLOBIN 11.3 g/dL (13.5-17.5); IMMATURE GRANULOCYTES 0.2 % (0-5); LYMPHOCYTES 29.6 % (15-50); MCH 29.1 pg (26.0-34.0); MCHC 32.1 g/dL (31.0-37.0); MCV 90.7 fL (80.0-100.0); MONOCYTES 11.6 % (2-11); PLATELET COUNT 194 10x3/uL (130-400); RBC 3.88 10x6/uL (4.20-6.10); WBC 5.1 10x3/uL (4.8-10.8)
[2018-11-17 04:18] LABS: ALBUMIN 2.9 g/dL (3.4-5.0); ALKALINE PHOSPHATASE 57 U/L (46-116); CALCIUM 7.7 mg/dL (8.5-10.1); CARBON DIOXIDE 21.3 mmol/L (21.0-32.0); CHLORIDE - SERUM 107 mmol/L (98-107); PROTEIN - SERUM 5.5 g/dL (6.4-8.2); SODIUM 141 mmol/L (136-145); UREA NITROGEN 27 mg/dL (7-18); eGFR NON AFRICAN AMERICAN 77 mL/min (90-120)
[2018-11-17 04:19] LABS: ALT (SGPT) 14 U/L (10-68); CALC OSMOLALITY 283 mosm/kg (275-300); GLUCOSE 63 mg/dL (74-106)
--- NOTE | 2018-11-17 05:00 | NUR ---
Patient sleeping in bed with eyes closed on room air, no s/s of bleeding/distress at this time. All VSS and will continue to monitor.
--- NOTE | 2018-11-17 07:45 | NUR ---
ATE 100% CLD FOR BREAKFAST. DENIES NEEDS WILL CONTINUE TO MONITOR
--- NOTE | 2018-11-17 08:15 | NUR ---
ASSISTED UP TO BEDSIDE COMMODE MODERATE AMOUNT OF BLACK TAR CONSISTANCY STOOL NOTED WITH DARK BLOOD NOTED. WILL UPDATE GI. ASSISTED BACK TO BED VSS WILL CONTINUE TO MONITOR
--- NOTE | 2018-11-17 09:20 | NUR ---
DR KATE CALLED GIVEN UDPATE. NO NEW ORDERS AT THIS TIME.
--- NOTE | 2018-11-17 10:56 | NUR ---
DR LEVY AT BEDSIDE GIVEN UDPATE. NO NEW ORDERS WILL CONTNIUE TO MONITOR
[2018-11-17 14:08] LABS: HEMATOCRIT 35.4 % (42.0-54.0); HEMOGLOBIN 11.6 g/dL (13.5-17.5)
--- NOTE | 2018-11-17 14:30 | NUR ---
RECEIVED FROM ICU VIA W/C. IV INFUSING IN RIGHT FOREARM SITE INTACT. ALERT AND ORIENT. NON-SKID SOCKS PLACED ON PATIENT. DENIES NEEDS INSTRUCTED PATIENT TO NOTIFY NURSE WITH BM. CL IN PLACE
--- NOTE | 2018-11-17 16:47 | NUR ---
DENIES NEEDS AT THIS TIME, BEEN UP TO RESTROOM. GAIT IS STEADY. NO BM.
--- NOTE | 2018-11-17 19:02 | NUR ---
PATIENT TO CALL ME TO ROOM WITH DARK RED BM IN [facility].
--- NOTE | 2018-11-17 19:28 | NUR ---
RESUMING PT CARE. PT IS ALERT LAYING IN BED. NO C/O VOICED. NO S/S OF DISTRESS NOTED. BED IN LOW POSITION WITH CALL LIGHT IN REACH. WILL CONTINUE TO MONITOR PT AND FOLLOW PLAN OF CARE.
[2018-11-17 21:15] LABS: HEMOGLOBIN 10.8 g/dL (13.5-17.5)
[2018-11-18] VITALS (7 sets, daily range): BP systolic 111–159; BP diastolic 47–65
--- NOTE | 2018-11-18 03:19 | NUR ---
I have reviewed this patient and I concur with the Shift Assessment completed by the Licensed Practical Nurse today this shift.
[2018-11-18 05:02] LABS: BASOPHILS 0.4 % (0-2); EOSINOPHILS 1.9 % (0-7); HEMATOCRIT 33.9 % (42.0-54.0); HEMOGLOBIN 10.9 g/dL (13.5-17.5); IMMATURE GRANULOCYTES 0.2 % (0-5); LYMPHOCYTES 25.5 % (15-50); MCH 29.1 pg (26.0-34.0); MCHC 32.2 g/dL (31.0-37.0); MCV 90.4 fL (80.0-100.0); MEAN PLATELET VOLUME 9.4 fL (7.4-10.4); MONOCYTES 16.3 % (2-11); NEUTROPHILS 55.7 % (40-80); PLATELET COUNT 202 10x3/uL (130-400); RBC 3.75 10x6/uL (4.20-6.10); RDW 15.8 % (11.5-14.5); WBC 5.1 10x3/uL (4.8-10.8)
[2018-11-18 05:21] LABS: ALBUMIN 2.6 g/dL (3.4-5.0); ANION GAP 6.9 mmol/L (8-16); BILIRUBIN - TOTAL 0.23 mg/dL (0.2-1.3); CALCIUM 7.7 mg/dL (8.5-10.1); CREATININE - SERUM 1.1 mg/dL (0.6-1.3); POTASSIUM - SERUM 4.3 mmol/L (3.5-5.1); PROTEIN - SERUM 5.1 g/dL (6.4-8.2)
[2018-11-18 05:35] LABS: CARBON DIOXIDE 28.4 mmol/L (21.0-32.0)
--- NOTE | 2018-11-18 07:18 | NUR ---
AM ROUNDING DONE WITH PATIENT HAVING NO NEEDS VOICED. RIGHT INNER FA PIV SEEN WITH NS INFUSING AT 100 CC/HR ALONG WITH PROTONIX DRIP AT 10 CC/HR. NO STOOL LAST SHIFT. ON HEART MONITOR SHOWING SB, HR 55. ROOM AIR.
--- NOTE | 2018-11-18 08:05 | NUR ---
FULL LIQUID TRAY HELD, ON CLEAR LIQUIDS NOW TO START PREP.
--- NOTE | 2018-11-18 08:44 | NUR ---
0843-PERMITS FOR COLONOSCOPY WITH TIVA SIGNED AND WITNESSED. GOLETLY PREP STARTED.
--- NOTE | 2018-11-18 09:30 | NUR ---
TOLERATING GOLYTELY PREP SO FAR. ON THIRD LARGE GLASS.
--- NOTE | 2018-11-18 13:35 | NUR ---
STILL WORKING ON LIQUID PREP. HAS HAD TWO STOOLS THIS SHIFT SO FAR.
--- NOTE | 2018-11-18 13:50 | NUR ---
ARIADNA PANDYA APN AND DR ANAYA IN TO SEE PATIENT.
[2018-11-18 14:19] LABS: HEMATOCRIT 34.3 % (42.0-54.0); HEMOGLOBIN 11.3 g/dL (13.5-17.5)
--- NOTE | 2018-11-18 15:47 | NUR ---
IV SITE IS STARTING TO GET RED, WILL ATTEMPT RE-SITE.
--- NOTE | 2018-11-18 17:03 | NUR ---
ROUNDED DONE. PT STATED HE WAS STILL GOING TO THE BATHROOM AND HOPED TI WOULD SLOW DOWN SOON SO HE COULD SHOWER. REMINDED PT HE WOULD NEED AN IV AFTER SHOWER WAS COMPLETED. PT VERBALIZED UNDERSTANDING.
--- NOTE | 2018-11-18 17:19 | NUR ---
PATIENT IS NOW IN THE SHOWER, WILL RESITE IV AFTER THIS.
--- NOTE | 2018-11-18 17:22 | NUR ---
PT IS IN THE SHOWER AT THIS TIME. MONITORING WHILE IN SHOWER. NO ACUTE DISTRESS NOTED AT THIS TIME. AMBULATES PER SELF WITH NON-SKID SOCKS ON. RESP EVEN AND NONLABORED. CLEAR LIQUID DIET. TOLERATING WELL. NO C/O VOICED AT THIS TIME. NO NEEDS NOTED AT THIS TIME. CL IN REACH AND WORKING. WILL CONT TO MONITOR Q 15 MINS FOR SAFETY.
--- NOTE | 2018-11-18 18:00 | NUR ---
22 G TO RIGHT FA X 2 STICKS PER THIS NURSE. 20 G REMOVED SITE WAS GETTING SLIGHTLY RED. PATEINT STATES THAT HIS STOOL COLOR NOW IS CLEAR. NPO PAST MIDNIGHT TONIGHT.
--- NOTE | 2018-11-18 20:15 | NUR ---
RESUMING PT CARE. PT IS ALERT LAYING IN BED. NO C/O VOICED. NO S/S OF DISTRESS NOTED. BED IN LOW POSITION WITH CALL LIGHTIN REACH. WILL CONTINUE TO MONTOR PT AND FOLLOW PLAN OF CARE.
[2018-11-18 20:53] LABS: HEMATOCRIT 32.2 % (42.0-54.0); HEMOGLOBIN 10.7 g/dL (13.5-17.5)
[2018-11-19] VITALS: BP 109/46
[2018-11-19 03:00] VITALS: BP 129/49
--- NOTE | 2018-11-19 03:36 | NUR ---
I have reviewed this patient and I concur with the Shift Assessment completed by the Licensed Practical Nurse today this shift.
[2018-11-19 05:25] LABS: BASOPHILS 0.3 % (0-2); EOSINOPHILS 3.7 % (0-7); HEMATOCRIT 30.2 % (42.0-54.0); HEMOGLOBIN 9.8 g/dL (13.5-17.5); IMMATURE GRANULOCYTES 0.3 % (0-5); MCH 29.4 pg (26.0-34.0); MCHC 32.5 g/dL (31.0-37.0); MCV 90.7 fL (80.0-100.0); MEAN PLATELET VOLUME 9.3 fL (7.4-10.4); MONOCYTES 15.1 % (2-11); NEUTROPHILS 46.6 % (40-80); PLATELET COUNT 193 10x3/uL (130-400); RBC 3.33 10x6/uL (4.20-6.10); RDW 15.8 % (11.5-14.5); WBC 3.8 10x3/uL (4.8-10.8)
[2018-11-19 05:31] LABS: ALBUMIN 2.6 g/dL (3.4-5.0); ALKALINE PHOSPHATASE 56 U/L (46-116); ALT (SGPT) 14 U/L (10-68); BILIRUBIN - TOTAL 0.28 mg/dL (0.2-1.3); CALC OSMOLALITY 283 mosm/kg (275-300); CALCIUM 7.4 mg/dL (8.5-10.1); CARBON DIOXIDE 24.6 mmol/L (21.0-32.0); CHLORIDE - SERUM 111 mmol/L (98-107); GLUCOSE 82 mg/dL (74-106); POTASSIUM - SERUM 3.6 mmol/L (3.5-5.1); PROTEIN - SERUM 5.1 g/dL (6.4-8.2); SODIUM 144 mmol/L (136-145); UREA NITROGEN 8 mg/dL (7-18); eGFR NON AFRICAN AMERICAN 77 mL/min (90-120)
[2018-11-19 06:46] LABS: INR 1.17 (0.85-1.17); PROTIME 14.4 SECONDS (11.6-15.0)
--- NOTE | 2018-11-19 07:00 | NUR ---
RECEIVED BEDSIDE SHIFT REPORT. ASSUMED CARE OF PATIENT. PATIENT OOB AMBULATING IN ROOM. UNDERSTANDS NPO STATUS. PATIENT FOR COLONOSCOPY WITH TODAY. CALL LIGHT WITHIN REACH. NO DISTRESS. DENIES NEEDS.
--- NOTE | 2018-11-19 09:30 | NUR ---
PREOP MEDICATIONS ADMINISTERED AT THIS TIME.
--- NOTE | 2018-11-19 09:44 | NUR ---
PATIENT LEFT VIA BED AT THIS TIME FOR GI LAB COLONOSCOPY WITH . NO DISTRESS UPON LEAVING THE UNIT. IS WAITING FOR REPORT IN PATIENT ROOM.
--- NOTE | 2018-11-19 10:32 | NUR ---
TATTOO INK USED AT HEPATIC FLEXURE SITE.
--- NOTE | 2018-11-19 11:23 | NUR ---
PATIENT RETURN TO UNIT VIA BED FROM COLONOSCOPY. PATIENT IS AWAKE AND ALERT. FRESH ICE WATER PROVIDED. PATIENT RECONNECTED TO FLUIDS. RECOVERY NURSE INFORMED PATIENT AND FEMALE AT BEDSIDE THAT WILL BE TO UNIT SOON TO DISCUSS COLONOSCOPY. CALL LIGHT PLACED WITHIN REACH. NO DISTRESS.
[2018-11-19 13:31] VITALS: BP 121/46
[2018-11-19 13:33] LABS: HEMATOCRIT 32.4 % (42.0-54.0); HEMOGLOBIN 10.5 g/dL (13.5-17.5)
--- NOTE | 2018-11-19 14:30 | NUR ---
RESTING IN BED WITH EYES OPEN. FEMALE VISITOR AT BEDSIDE. NO DISTRESS CALL LIGHT WITHIN REACH. IV FLUIDS INFUSING ORDERED.
--- NOTE | 2018-11-19 16:11 | NUR ---
22 GAUGE TO RIGHT POSTERIOR FOREARM INFILTRATED. IV FLUIDS STOPPED. IV CATHETER REMOVED. CATHETER TIP INTACT. NO BLEEDING FROM SITE. 2X2 GAUZE APPLIED AND SECURED WITH BANDAID. 22 GAUGE IV PLACED TO RIGHT ANTERIOR FOREARM X 1 STICK. GOOD BLOOD RETURN, EASY FLUSH. TOLERATED IV PLACEMENT WELL. TAPED,DATED AND SECURED. IV FLUIDS AND PROTONIX INFUSING ORDERED AT THIS TIME.
[2018-11-19 17:28] VITALS: BP 135/41
[2018-11-19 19:35] VITALS: BP 136/51
--- NOTE | 2018-11-19 19:45 | NUR ---
EVENING ROUNDS MADE. PT SITTING UP IN BED, A/O X4. UP AB EVELIA. PT DENIES PAIN AT THIS TIME. RM AIR. R FA IV WITH NS @ 100, PROTONIX @ 10 ML/HR, PATENT, NO REDNESS OR EDEMA NOTED. SINUS XAVIER ON TELE. PT STATES "MY HEART ALWAYS BEATS SLOW" ABD SLIGHTLY DISTENDED, SOFT, NON TENDER. LUNGS CLEAR. FALL PRECAUTIONS IN PLACE. WILL CTM
--- NOTE | 2018-11-19 20:38 | NUR ---
PT VITALS STABLE. TOOK MEDS WITHOUT DIFFICULTY. NO FURTHER CONCERNS AT THIS TIME. WILL CTM .
[2018-11-19 21:21] LABS: HEMATOCRIT 34.7 % (42.0-54.0); HEMOGLOBIN 11.4 g/dL (13.5-17.5)
--- NOTE | 2018-11-19 22:07 | NUR ---
PT STATED THAT HE FELT THAT HE WAS FEVERISH. NOTED TEMP OF 101.3 CALLED HOUSE THEO FOR TYLENOL, TAO VENEGAS STATED THAT SHE COULDNT GET ANY TYLENOL FROM ER DOC OR ANY ORDERS AND THAT ALL I COULD DO IS TO PUT ICE PACKS ON PT AND TURN AIR DOWN AND PUT FAN ON PT. ALL INTERVENTIONS DONE PLUS SHEETS REMOVED. WILL CTM.
--- NOTE | 2018-11-19 23:24 | NUR ---
PT TEMP DOWN TO 98.2, ICE PACKS REMOVED FROM AXILLARY, FAN TURNED OFF, AND BLANKETS REAPPLIED. PT STATES FEELING OKAY. NO FURTHER CONCERNS AT THIS TIME. FALL PRECAUTIONS IN PLACE. WILL CTM.
[2018-11-20] VITALS: BP 125/49
--- NOTE | 2018-11-20 03:25 | NUR ---
IV TO PT R FA INFILTRATED. IV REMOVED TIP INTACT. NEW 22 G SITED TO R FA, 1 ATTEMPT. NO REDNESS OR EDEMA NOTED. DRSG C/D/I. PT TOLERATED WITHOUT DIFFICULTY. FALL PRECAUTIONS IN PLACE. WILL CTM.
[2018-11-20 04:00] VITALS: BP 115/43
[2018-11-20 05:11] LABS: BASOPHILS 0.1 % (0-2); EOSINOPHILS 0.9 % (0-7); HEMOGLOBIN 10.5 g/dL (13.5-17.5); IMMATURE GRANULOCYTES 0.1 % (0-5); LYMPHOCYTES 14.1 % (15-50); MCH 29.5 pg (26.0-34.0); MCHC 32.8 g/dL (31.0-37.0); MCV 89.9 fL (80.0-100.0); MEAN PLATELET VOLUME 9.2 fL (7.4-10.4); NEUTROPHILS 74.8 % (40-80); PLATELET COUNT 185 10x3/uL (130-400); RBC 3.56 10x6/uL (4.20-6.10); RDW 15.3 % (11.5-14.5)
[2018-11-20 05:13] LABS: WBC 6.8 10x3/uL (4.8-10.8)
[2018-11-20 05:26] LABS: ALBUMIN 2.6 g/dL (3.4-5.0); BILIRUBIN - TOTAL 0.4 mg/dL (0.2-1.3); CALCIUM 7.3 mg/dL (8.5-10.1); CARBON DIOXIDE 23.3 mmol/L (21.0-32.0); CREATININE - SERUM 1.1 mg/dL (0.6-1.3); POTASSIUM - SERUM 3.3 mmol/L (3.5-5.1); PROTEIN - SERUM 5.1 g/dL (6.4-8.2)
--- NOTE | 2018-11-20 07:00 | NUR ---
RECEIVED REPORT. ASSUMED CARE OF PATIENT. CALL LIGHT WITHIN REACH. PATIENT IS UP THIS AM AMBULATING IN ROOM. CT HAS BROUGHT CONTRAST TO PATIENT ROOM FOR CTA OF ABD. DENIES NEEDS. NO DISTRESS.
--- NOTE | 2018-11-20 07:43 | NUR ---
CALLED SHE IN XRAY TO LET HIM KNOW THAT PATIENT HAS FINISHED DRINKING ALL OF HIS CONTRAST.
--- NOTE | 2018-11-20 09:06 | NUR ---
PATIENT LEFT UNIT VIA WHEELCHAIR FOR CT OF ABD. NO DISTRESS UPON LEAVING UNIT.
[2018-11-20 09:25] VITALS: BP 131/46
[2018-11-20 10:25] VITALS: Ht 175.3 cm; Wt 69.5 kg
--- NOTE | 2018-11-20 10:53 | NUR ---
PATIENT OUT OF ROOM AMBULATING HALLWAYS AT THIS TIME. NO DISTRESS.
--- NOTE | 2018-11-20 14:00 | NUR ---
AT BEDSIDE FOR ROUNDS. PATIENT UPSET THAT PHYSICIANS KEEP CHANGING ORDERS FOR LOVENOX AND CAN'T DECIDE WHAT IS BEST FOR HIM OVERALL INSTEAD OF FROM SPECIALTY STANDPOINTS. WILL CALL TO CLARIFY BEST PLAN OF CARE FOR PATIENT IN REGARDS TO LOVENOX AND SERIAL H/H DRAWS
[2018-11-20 14:03] VITALS: BP 135/57
[2018-11-20 14:22] LABS: HEMATOCRIT 34.6 % (42.0-54.0); HEMOGLOBIN 11.2 g/dL (13.5-17.5)
--- NOTE | 2018-11-20 16:54 | NUR ---
NO DISTRESS. SITTING TO SIDE OF BED CONSUMING PM MEAL. AT BEDSIDE.
--- NOTE | 2018-11-20 17:54 | NUR ---
PAGED REGARDING LOVENOX INJECTION AT THIS TIME.
--- NOTE | 2018-11-20 18:00 | NUR ---
RETURNED CALL AND STATED HE RELOOKED AT THE PATIENT AND STATED THAT HE IS GOING TO HOLD THE LOVENOX UNTIL AFTER SURGERY. THANKED FOR CALLING BACK.
[2018-11-20 20:00] VITALS: BP 140/65
--- NOTE | 2018-11-20 20:33 | NUR ---
INITIAL ROUNDS COMPLETED AT 1910 HRS. PT DENIED ANY DISCOMFORT. ASSESSMENT COMPLETED AT 2015 HRS. VSS. SR PER CM HR 62, AFEBRILE. IV TO RFA WITH NS AT 75CC/HR AND PROTONIX DRIPA T 10CC/HR. IV PATENT. LUNGS ESSENTIALLY CTA. PT UP AD EVELIA. REFUSES SCD'S. SR UP X2, CALL LIGHT WITHIN REACH.
--- NOTE | 2018-11-20 23:11 | NUR ---
PT AWAKE; DENIES ANY DISCOMFORT. SR UP X2, CALL LIGHT WITHIN REACH.
[2018-11-21] VITALS: BP 132/56
--- NOTE | 2018-11-21 00:44 | NUR ---
PT AWAKE; DENIES ANY DISCOMFORT. SR UP X2, CALL LIGHT WITHIN REACH.
--- NOTE | 2018-11-21 02:27 | NUR ---
PT RESTING WITH EYES CLOSED. RESP EVEN AND REGULAR. SR UP X2, CALL LIGHT WITHIN REACH.
[2018-11-21 04:00] VITALS: BP 119/54
--- NOTE | 2018-11-21 04:26 | NUR ---
PT RESTING WITH EYES CLOSED. RESP EVEN AND REGULAR. SRUP X2, CALL LIGHT WITHIN REACH.
[2018-11-21 05:43] LABS: BASOPHILS 0.2 % (0-2); EOSINOPHILS 1.8 % (0-7); HEMATOCRIT 29.8 % (42.0-54.0); HEMOGLOBIN 9.7 g/dL (13.5-17.5); LYMPHOCYTES 26.2 % (15-50); MCH 29.2 pg (26.0-34.0); MCHC 32.6 g/dL (31.0-37.0); MCV 89.8 fL (80.0-100.0); MEAN PLATELET VOLUME 9.2 fL (7.4-10.4); MONOCYTES 15.4 % (2-11); NEUTROPHILS 56.4 % (40-80); PLATELET COUNT 193 10x3/uL (130-400); RBC 3.32 10x6/uL (4.20-6.10); RDW 15.4 % (11.5-14.5); WBC 5.1 10x3/uL (4.8-10.8)
[2018-11-21 06:14] LABS: ALBUMIN 2.3 g/dL (3.4-5.0); ALKALINE PHOSPHATASE 52 U/L (46-116); ALT (SGPT) 14 U/L (10-68); BILIRUBIN - TOTAL 0.28 mg/dL (0.2-1.3); CALC OSMOLALITY 280 mosm/kg (275-300); CALCIUM 7.2 mg/dL (8.5-10.1); CARBON DIOXIDE 23.5 mmol/L (21.0-32.0); CHLORIDE - SERUM 110 mmol/L (98-107); GLUCOSE 86 mg/dL (74-106); PROTEIN - SERUM 4.8 g/dL (6.4-8.2); SODIUM 143 mmol/L (136-145); eGFR NON AFRICAN AMERICAN 77 mL/min (90-120)
[2018-11-21 06:15] LABS: UREA NITROGEN 4 mg/dL (7-18)
--- NOTE | 2018-11-21 06:43 | NUR ---
VSS THROUGHOUT NIGHT. SR PER CM. PT DENIED ANY DISCOMFORT. NEEDS MET; WILL CONTINUE TO MONITOR.
--- NOTE | 2018-11-21 07:40 | NUR ---
A/A/OX4. DENIES ANY PAIN OR DISCOMFORT AND VOICES NOT REQUESTS OR COMPLAINTS. ASSESSMENT COMPLETED. IV PATENT TO RIGHT FOREARM WITHOUT REDNESS OR EDEMA. WILL CONTINUE POC.
[2018-11-21 08:55] VITALS: BP 129/41
[2018-11-21 11:33] LABS: % SATURATION 7 % (15-55); IRON 13 ug/dl (35-150); TOTAL IRON BIND CAPACITY 182 ug/dl (260-445); UNSAT IRON BIND CAPACITY 169 ug/dl (150-375)
[2018-11-21 12:36] VITALS: BP 121/39
--- NOTE | 2018-11-21 12:39 | NUR ---
I have reviewed this patient and I concur with the Shift Assessment completed by the Licensed Practical Nurse today this shift.
[2018-11-21 16:43] VITALS: BP 148/58
[2018-11-21 20:00] VITALS: BP 122/76
[2018-11-22] VITALS: BP 149/69
--- NOTE | 2018-11-22 02:26 | NUR ---
I have reviewed this patient and I concur with the Shift Assessment completed by the Licensed Practical Nurse today this shift.
--- NOTE | 2018-11-22 03:37 | NUR ---
RESTING WITH EYES CLOSED, RESPERATIONS EVEN, NO S/S DISTRESS NOTED.
[2018-11-22 04:20] VITALS: BP 134/60
[2018-11-22 04:50] LABS: BASOPHILS 0.2 % (0-2); EOSINOPHILS 2.4 % (0-7); HEMATOCRIT 30.2 % (42.0-54.0); HEMOGLOBIN 9.8 g/dL (13.5-17.5); IMMATURE GRANULOCYTES 0.2 % (0-5); LYMPHOCYTES 25.7 % (15-50); MCHC 32.5 g/dL (31.0-37.0); MCV 89.3 fL (80.0-100.0); MEAN PLATELET VOLUME 9.3 fL (7.4-10.4); MONOCYTES 14.3 % (2-11); NEUTROPHILS 57.2 % (40-80); PLATELET COUNT 194 10x3/uL (130-400); RBC 3.38 10x6/uL (4.20-6.10); RDW 15.1 % (11.5-14.5); WBC 4.6 10x3/uL (4.8-10.8)
[2018-11-22 05:18] LABS: ALBUMIN 2.4 g/dL (3.4-5.0); ALKALINE PHOSPHATASE 50 U/L (46-116); ALT (SGPT) 17 U/L (10-68); BILIRUBIN - TOTAL 0.23 mg/dL (0.2-1.3); CALC OSMOLALITY 279 mosm/kg (275-300); CALCIUM 7.5 mg/dL (8.5-10.1); CARBON DIOXIDE 25.7 mmol/L (21.0-32.0); CHLORIDE - SERUM 109 mmol/L (98-107); GLUCOSE 99 mg/dL (74-106); POTASSIUM - SERUM 3.3 mmol/L (3.5-5.1); PROTEIN - SERUM 5.1 g/dL (6.4-8.2); SODIUM 142 mmol/L (136-145); UREA NITROGEN 4 mg/dL (7-18); eGFR NON AFRICAN AMERICAN 77 mL/min (90-120)
--- NOTE | 2018-11-22 07:37 | NUR ---
AM ROUNDS- PT RESTING COMFORTABLY IN BED, A/OX 4, RESP EVEN AND NONLABORED ON RA. RT FA INFUSING CLINDAMAX AT 30CC/HR. PT ASKING WHEN HE IS SCHEDULE FOR SURGERY TODAY. INFORMED PT THAT I DO NOT KNOW, BUT WILL CONTACT SURGERY TO SEE WHAT TIME HE IS ON THE SCHEDULE FOR. PT DENIES ANY OTHER NEEDS AT THIS TIME. CALL LIGHT IN REACH, AT BEDSIDE, NAD NOTED, WILL CONTINUE PLAN OF CARE.
--- NOTE | 2018-11-22 07:41 | NUR ---
CALLED SURGERY AND SPOKE WITH KADEN, ASKED HIM IF PT IS ON THE SCHEDULE FOR SURGERY WITH DR. QUIÑONEZ TODAY. KADEN STATED THAT DR. QUIÑONEZ ONLY HAS ONE SURGERY TODAY AND PT IS NOT ON THE SCHEDULE, WILL CONTACT KIRAN FRANCES WITH DR. QUIÑONEZ.
--- NOTE | 2018-11-22 08:24 | NUR ---
PAGED KIRAN FRANCES WITH DR. QUIÑONEZ, WAITING CEREAL MILLER BACK.
[2018-11-22 09:16] VITALS: BP 144/45
--- NOTE | 2018-11-22 10:00 | NUR ---
NOTIFIED PT AND HIS THAT DR. QUIÑONEZ WILL BE DOING THE SURGERY TOMORROW, NPO AFTER MIDNIGHT. PT UP AD EVELIA IN THE ROOM, DENIES ANY NEEDS AT THIS TIME. CALL LIGHT IN REACH, AND NOTED,W ILL CONTINUE TO MONITOR.
[2018-11-22 10:19] LABS: FOLATE (FOLIC ACID) - SERUM 14.8 ng/mL (>3.0)
[2018-11-22 12:38] VITALS: BP 141/60
--- NOTE | 2018-11-22 12:45 | NUR ---
Nutrition follow-up: Pt receiving a clear liquid diet; NPO after MN for Hals colectomy 11/22 Labs reviewed Clinimix PPN infusing @ 30 ml/hr Wt: 155# RDN following.
--- NOTE | 2018-11-22 13:39 | NUR ---
[facility] AND SPOKE WERNER JULIEN, INFORMED HIM THAT I NEED FLAGYL AND NEOMYCIN FOR PT.
[2018-11-22 17:01] VITALS: BP 153/63
--- NOTE | 2018-11-22 17:46 | NUR ---
CONSENTS SIGNED BY PT AND PLACED ON CHART. INFORMED PT THAT HE IS ON THE SCHEDULE FOR 1315 TOMORROW. PT UP TO SIDE OF BED, DENIES ANY NEEDS AT THIS TIME. CALL LIGHT IN REACH, NAD NOTED.
--- NOTE | 2018-11-22 19:48 | NUR ---
DR QUINTERO AND DR QUIÑONEZ AT BED SIDE.
[2018-11-22 20:00] VITALS: BP 132/47
--- NOTE | 2018-11-22 21:50 | NUR ---
HS MEDS GIVEN WITH FRESH ICE WATER. DENIES PAIN OR NEEDS.
[2018-11-23] VITALS: BP 128/50
--- NOTE | 2018-11-23 00:43 | NUR ---
CALLED TO ROOM, PT C/O IV TO RIGHT FOREARM BURNING. IV CATH REMOVED TIP INTACT. RESITED IV TO LEFT ARM, 20 GUAGE, FIRST ATTMEPT. PT TOLERATED WELL.
[2018-11-23 04:00] VITALS: BP 130/65
--- NOTE | 2018-11-23 04:10 | NUR ---
RESTING WITH EYES CLOSED, RESPERATIONS EVEN, NO S/S DISTRESS NOTED.
--- NOTE | 2018-11-23 04:47 | NUR ---
I have reviewed this patient and I concur with the Shift Assessment completed by the Licensed Practical Nurse today this shift.
[2018-11-23 06:41] LABS: ALBUMIN 2.5 g/dL (3.4-5.0); ALKALINE PHOSPHATASE 49 U/L (46-116); ALT (SGPT) 20 U/L (10-68); BILIRUBIN - TOTAL 0.27 mg/dL (0.2-1.3); CALC OSMOLALITY 281 mosm/kg (275-300); CALCIUM 7.9 mg/dL (8.5-10.1); CARBON DIOXIDE 26.5 mmol/L (21.0-32.0); CHLORIDE - SERUM 110 mmol/L (98-107); CREATININE - SERUM 0.8 mg/dL (0.6-1.3); GLUCOSE 100 mg/dL (74-106); POTASSIUM - SERUM 3.4 mmol/L (3.5-5.1); PROTEIN - SERUM 5.1 g/dL (6.4-8.2); SODIUM 143 mmol/L (136-145); UREA NITROGEN 5 mg/dL (7-18); eGFR NON AFRICAN AMERICAN > 90 mL/min (90-120)
[2018-11-23 07:31] LABS: BASOPHILS 0.2 % (0-2); EOSINOPHILS 2.1 % (0-7); HEMATOCRIT 31.2 % (42.0-54.0); HEMOGLOBIN 10.2 g/dL (13.5-17.5); IMMATURE GRANULOCYTES 0.2 % (0-5); LYMPHOCYTES 24.4 % (15-50); MCH 29.1 pg (26.0-34.0); MCHC 32.7 g/dL (31.0-37.0); MCV 89.1 fL (80.0-100.0); MEAN PLATELET VOLUME 9.5 fL (7.4-10.4); MONOCYTES 13.9 % (2-11); NEUTROPHILS 59.2 % (40-80); PLATELET COUNT 211 10x3/uL (130-400); RDW 15.4 % (11.5-14.5); WBC 4.8 10x3/uL (4.8-10.8)
[2018-11-23 07:56] VITALS: BP 135/61
--- NOTE | 2018-11-23 08:27 | NUR ---
GAVE BETAPACE WITH A SIP OF WATER. NEW BAG OF CLINIMIX HUNG AT THIS TIME. PT RESTING COMFORTABLY IN BED, A/O X4, RESP EVEN AND NONLABORED ON RA. PT DENIES ANY NEEDS AT THIS TIME. CALL LIGHT IN REACH, NAD NOTED,W ILL CONTINUE PLAN OF CARE.
[2018-11-23 11:54] VITALS: BP 139/61
--- NOTE | 2018-11-23 16:42 | NUR ---
CALLED SURGERY AND SPOKE WITH ARCHIE, ASKED HER IF PT IS STILL GOING TO SURGERY TODAY. ARCHIE STATED THAT IT WILL BE ANOTHER HOUR OR 2 BEFORE THE CAN GET TO HIM.
--- NOTE | 2018-11-23 19:20 | NUR ---
SPOKE WITH ANAYA IN PHARMACY, ASKED ABOUT CARDIZEM DRIP NOT BEING IN THE PYXIS. ANAYA STATED THAT HE WILL BRING IT UP.
--- NOTE | 2018-11-23 19:34 | NUR ---
CARDIZEM 15 MG BOLUS GIVEN ORDERED, PTS HR 124 UNCONTROLLED AFIB.
[2018-11-23 20:00] VITALS: BP 123/54
--- NOTE | 2018-11-23 22:12 | NUR ---
PD EXCHANGE COMPLETE, SPECIMINE COLLECTED AND TAKEN TO LAB.
--- NOTE | 2018-11-24 03:03 | NUR ---
I have reviewed this patient and I concur with the Shift Assessment completed by the Licensed Practical Nurse today this shift.
[2018-11-24 04:00] VITALS: BP 101/50
[2018-11-24 05:35] LABS: BASOPHILS 0.4 % (0-2); EOSINOPHILS 1.5 % (0-7); HEMATOCRIT 34.1 % (42.0-54.0); HEMOGLOBIN 11.1 g/dL (13.5-17.5); IMMATURE GRANULOCYTES 0.2 % (0-5); LYMPHOCYTES 22.9 % (15-50); MCHC 32.6 g/dL (31.0-37.0); MEAN PLATELET VOLUME 9.4 fL (7.4-10.4); MONOCYTES 14.8 % (2-11); NEUTROPHILS 60.2 % (40-80); PLATELET COUNT 219 10x3/uL (130-400); RBC 3.83 10x6/uL (4.20-6.10); RDW 15.4 % (11.5-14.5); WBC 4.5 10x3/uL (4.8-10.8)
[2018-11-24 05:55] LABS: ALBUMIN 2.5 g/dL (3.4-5.0); ALKALINE PHOSPHATASE 55 U/L (46-116); ALT (SGPT) 19 U/L (10-68); BILIRUBIN - TOTAL 0.36 mg/dL (0.2-1.3); CALC OSMOLALITY 279 mosm/kg (275-300); CALCIUM 7.8 mg/dL (8.5-10.1); CARBON DIOXIDE 25.9 mmol/L (21.0-32.0); CHLORIDE - SERUM 106 mmol/L (98-107); CREATININE - SERUM 0.8 mg/dL (0.6-1.3); GLUCOSE 88 mg/dL (74-106); POTASSIUM - SERUM 3.1 mmol/L (3.5-5.1); PROTEIN - SERUM 5.3 g/dL (6.4-8.2); SODIUM 142 mmol/L (136-145); UREA NITROGEN 6 mg/dL (7-18); eGFR NON AFRICAN AMERICAN > 90 mL/min (90-120)
--- NOTE | 2018-11-24 07:25 | NUR ---
REPORT RECIEVED AND MORNING ROUNDING COMPLETE. PT UP AT SINK BRUSHING HIS TEETH. A&O X4. PT'S IN ROOM WELL. PT STATES NO NEEDS AT THIS TIME. JUST WAITING TO FIND OUT WHAT THE PLAN FOR TODAY IS. CALL LIGHT LAYING ON BED. BED IN LOWEST POSITION.
[2018-11-24 07:46] VITALS: BP 100/44
--- NOTE | 2018-11-24 08:13 | NUR ---
MINERVA HEARN AND HE RUTERNED MY CALL. ONE TIME ORDER FOR PO POTASSIUM. WILL FULL ORDER.
--- NOTE | 2018-11-24 14:14 | NUR ---
PT BACK TO THE FLOOR VIA BED. WITH HOSPITAL PERSONS
[2018-11-24 14:19] VITALS: BP 118/69
--- NOTE | 2018-11-24 14:45 | NUR ---
INITIATED CARTOGRAPHIC AIDE PUMP AND PROVIDED TEACHING. PT AND VERBALIZED UNDERSTANDING AND DENY ANY QUESTIONS OR CONCERNS. WILL CTM.
--- NOTE | 2018-11-24 14:56 | NUR ---
Nutrition follow-up: Pt to OR today NPO at this time. Labs reviewed Wt: 157# Will need nutrition support started if oral diet unable to begin within 24 hours. RDN following
[2018-11-24 15:37] VITALS: BP 127/77
[2018-11-24 20:00] VITALS: BP 130/69
--- NOTE | 2018-11-24 20:17 | NUR ---
EVENING ROUNDS COMPLETED. REPORT RECEIVED. PT SITTING UP IN BED WITH EYES OPEN, RR EVEN AND UNLABORED. INTRODUCED SELF TO PT. NO S/S OF DISTRESS NOTED. PT REQUESTED TO HAVE DOOR LEFT OPEN. CARDIZEM INFUSING ORDERED THROUGH LEFT FOREARM PIV. CALL LIGHT IN REACH. WILL CTM.
--- NOTE | 2018-11-25 00:53 | NUR ---
HYDROMORPHONE TOOL DESIGN DRAFTER CANNISTER REPLACED. 5 MLS WASTED FROM OLD CANNISTER. WITNESSED BY FLAVIA MENDIOLA RN.
--- NOTE | 2018-11-25 03:32 | NUR ---
I have reviewed this patient and I concur with the Shift Assessment completed by the Licensed Practical Nurse today this shift.
[2018-11-25 04:00] VITALS: BP 136/70
[2018-11-25 05:03] LABS: BASOPHILS 0.3 % (0-2); EOSINOPHILS 0.1 % (0-7); HEMATOCRIT 37.3 % (42.0-54.0); HEMOGLOBIN 11.9 g/dL (13.5-17.5); IMMATURE GRANULOCYTES 0.1 % (0-5); LYMPHOCYTES 10.1 % (15-50); MCHC 31.9 g/dL (31.0-37.0); MEAN PLATELET VOLUME 9.1 fL (7.4-10.4); MONOCYTES 10.7 % (2-11); NEUTROPHILS 78.7 % (40-80); PLATELET COUNT 208 10x3/uL (130-400); RDW 15.4 % (11.5-14.5); WBC 10.5 10x3/uL (4.8-10.8)
[2018-11-25 05:10] LABS: ALBUMIN 2.9 g/dL (3.4-5.0); ANION GAP 15.4 mmol/L (8-16); BILIRUBIN - TOTAL 0.43 mg/dL (0.2-1.3); CALCIUM 7.9 mg/dL (8.5-10.1); CARBON DIOXIDE 25.5 mmol/L (21.0-32.0); CREATININE - SERUM 1.3 mg/dL (0.6-1.3); MAGNESIUM - SERUM 1.7 mg/dL (1.8-2.4); PHOSPHOROUS 3.7 mg/dL (2.5-4.9); POTASSIUM - SERUM 3.9 mmol/L (3.5-5.1); PROTEIN - SERUM 6.2 g/dL (6.4-8.2); TROPONIN-I 0.019 ng/mL (0.000-0.060)
--- NOTE | 2018-11-25 05:22 | NUR ---
PT SITTING UP IN BED WITH EYES OPEN, RR EVEN AND UNLABORED. BED IN LOW POSITION. AT BEDSIDE. NO S/S OF DISTRESS NOTED. ORDERED IV FLUIDS INFUSING ORDERED. 80 CONT AFIB ON TELEMETRY. PT STATES HYDROMORPHONE MID LEVEL PROVIDER HAS BEEN EFFECTIVE IN MANAGING PAIN. 19.3 MLS LEFT IN MID LEVEL PROVIDER. 500 MLS GLENNA COLORED OUTPUT REMOVED FROM [place]. CALL LIGHT IN REACH. WILL CTM.
--- NOTE | 2018-11-25 07:14 | NUR ---
PT AWAKE AND ORIENTED, STATES HES HARD OF HEARING BUT PROMISES TO WEAR HIS HEARING AIDS SOME TIME TODAY. NO COMPLAITNS OR CONCERNS VOCED AT THIS TIME. AT THE [facility]. CL IN REACH, SRX2.
[2018-11-25 07:56] VITALS: BP 124/59
--- NOTE | 2018-11-25 10:35 | NUR ---
LEFT FOREARM I/V WENT BAD, RESITED TO RIGHT FA, CARDIZEM RESTARTED. CL IN REACH, SRX2. WILL REMOVE CATHETER PER PTS REQUEST I HAVEN'T FOUND ANY REASON FOR IT NOW THAT PT IS ALOUD TO BE UP AND ABOUT.
[2018-11-25 11:37] VITALS: BP 122/49
--- NOTE | 2018-11-25 13:37 | NUR ---
PT STATES HE'S FEELING DIZZY AND WEAK, LIKE HE IS IN AFIB. PT HAS BEEN GOING IN AND OUT OF AFIB ALL DAY, STATES HE CAN TELL. PAGING DR. HANKS TO SEE IF HE WANTS TO MAKE ANY ADJUSTMENTS TO THE DRIP THE PT IS ON.
--- NOTE | 2018-11-25 13:56 | NUR ---
REMOVED CATHETER PER STERILE NURSING PROTOCOL
--- NOTE | 2018-11-25 14:09 | NUR ---
I have reviewed this patient and I concur with the Shift Assessment completed by the Licensed Practical Nurse today this shift.
[2018-11-25 15:56] VITALS: BP 149/78
--- NOTE | 2018-11-25 16:41 | CN ---
PATIENT NAME:FRANCISCO SALAS MEDICAL RECORD: [id number] : 44 LOCATION:D. D.2112 ADMIT DATE: 11/16/18 ACCOUNT: [id number] CONSULTING PHYSICIAN: ONELIA HANKS MD REFERRING PHYSICIAN: LILIBETH RODRÍGUEZ MD DATE OF CONSULTATION: 11/20/2018 ADMITTING DIAGNOSES: 1. Coronary artery disease. 2. Previous percutaneous transluminal coronary angioplasty stent. 3. Paroxysmal atrial fibrillation, controlled in sinus rhythm on Betapace. 4. Hyperlipidemia. 5. Gastrointestinal bleed. HISTORY OF PRESENT ILLNESS: Mr. Salas presents with a GI bleed. He is on 2 blood thinners, Eliquis as well as Plavix. Last cardiac stents were in February of last year. He has had no recurrent angina. He is on sotalol. This is maintaining sinus rhythm. He has not had any AFib as of any time recent. PHYSICAL EXAMINATION: GENERAL APPEARANCE: Well-nourished, well-developed, appears stated age. Level of distress, comfortable. PSYCHIATRIC: Mental status, alert, normal affect. Orientation, oriented to time, place and person. EYES: Lids and conjunctiva, noninjected. No discharge, no pallor. ENT: Lips, teeth, gums, normal dentition. Oropharynx, no cyanosis, no pallor. NECK: Carotid arteries, bilateral normal upstroke, no bruits, no thrills. JUGULAR VEINS: No jugular venous pressure or distention. CERVICAL LYMPH NODES: Nontender, nonenlarged. THYROID: Not enlarged. Nontender. No nodules. LUNGS: Respiratory effort, unlabored. CHEST: Normal curvature. No thoracic deformity. No chest wall tenderness. Percussion, resonant. Auscultation, clear. No wheezes, no rales, no rhonchi. CARDIOVASCULAR: Precordial exam, nondisplaced. No heaves or pericardial thrills. Rate and rhythm, regular. Heart sounds, normal S1, normal S2. No S3, no gallop, no rub. Systolic murmur, not heard. Diastolic murmur, not heard. EXTREMITIES: No cyanosis, no edema. Peripheral pulses, full and equal in all extremities, except as noted. No bruits appreciated. ABDOMEN: Soft, nondistended. Normal aorta. No bruit. Nontender. No masses. Liver, nontender, no hepatomegaly. Spleen, nontender, no splenomegaly. MUSCULOSKELETAL: No joint tenderness. No joint swelling. No erythema. NEUROLOGICAL: Normal gait, normal strength, normal tone. SKIN: Warm and dry. OVERALL IMPRESSION: Gastrointestinal bleed with 2 blood thinners. He does not need either of these. His stents have been over 6 months and he is not in atrial fibrillation on sotalol. Discontinue the Eliquis. Discontinue the Plavix. He does not need enoxaparin. At this time, no other cardiac workup or treatment is necessary. TRANSINT:[id number] Voice Confirmation ID: [id number] DOCUMENT ID: [id number] CONSULT REPORT [id number] FRANCISCO SALAS JEFFREY MD at 1641 CC: [id number] DICTATION DATE: 11/20/18 1143 POLICE SHIFT COMMANDER: 11/20/182004 ADM IN [facility] [address] [place] [address]
--- NOTE | 2018-11-25 17:11 | NUR ---
2O GUAGE PIV INSERTED TO R.FA X1 STICK. D/C PTS OTHER R.FA PIV THAT HAD INFILTRATED. CARDIZEM INFUSING ORDERED. NO CURRENT NEEDS.
--- NOTE | 2018-11-25 17:42 | NUR ---
I/V RESISTED 20G RIGHT FOREARM, CARDIZEM AT 10. ONE STICK.
--- NOTE | 2018-11-25 18:52 | NUR ---
PT URINATED POST CATH AT THIS TIME. 200CC. C/O FEELING JITTERY, PT CURRENTLY RUNNING UCAF ON MONITOR. PT HAS BEEN IN AND OUT OF THAT AND SR ALL DAY. DR. HANKS IS AWARE, NIGHT NURSE AVRIL WILL GIVE 2100 BETAPACE AND MONITOR
--- NOTE | 2018-11-25 19:59 | NUR ---
EVENING ROUNDS COMPLETED. REPORT RECEIVED. PT SITTING UP IN BED WITH EYES OPEN, SPEAKING TO DR QUIÑONEZ. NO S/S OF DISTRESS NOTED. CARDIZEM AND NORMAL SALINE INFUSING ORDERED. PT STATES HYDROMORPHONE TICKER INSTALLER EFFECTIVE IN MANAGING PT COMPLAINTS OF PAIN. 5.34 MLS LEFT IN CANNISTER AT THIS TIME. CALL LIGHT IN REACH. WILL CTM.
[2018-11-25 20:00] VITALS: BP 131/58
[2018-11-26] VITALS (7 sets, daily range): BP systolic 107–139; BP diastolic 46–59
--- NOTE | 2018-11-26 02:51 | NUR ---
PT HEART RATE REACHED SINUS XAVIER, 47-52. TURNED OFF CARDIZEM DRIP. WILL NOTIFY ONCOMING NURSE. PT HAS NO S/S OF DISTRESS AT THIS TIME. WILL CTM.
--- NOTE | 2018-11-26 03:31 | NUR ---
I have reviewed this patient and I concur with the Shift Assessment completed by the Licensed Practical Nurse today this shift.
[2018-11-26 04:55] LABS: BASOPHILS 0.3 % (0-2); EOSINOPHILS 0.8 % (0-7); HEMOGLOBIN 10.1 g/dL (13.5-17.5); IMMATURE GRANULOCYTES 0.2 % (0-5); LYMPHOCYTES 13.7 % (15-50); MCH 28.8 pg (26.0-34.0); MCHC 31.6 g/dL (31.0-37.0); MCV 91.2 fL (80.0-100.0); MEAN PLATELET VOLUME 9.3 fL (7.4-10.4); MONOCYTES 12.1 % (2-11); NEUTROPHILS 72.9 % (40-80); PLATELET COUNT 184 10x3/uL (130-400); RBC 3.51 10x6/uL (4.20-6.10); RDW 15.7 % (11.5-14.5); WBC 10.7 10x3/uL (4.8-10.8)
[2018-11-26 05:32] LABS: ALBUMIN 2.3 g/dL (3.4-5.0); ANION GAP 12.9 mmol/L (8-16); BILIRUBIN - TOTAL 0.28 mg/dL (0.2-1.3); CALCIUM 7.8 mg/dL (8.5-10.1); CREATININE - SERUM 1.2 mg/dL (0.6-1.3); POTASSIUM - SERUM 3.9 mmol/L (3.5-5.1)
--- NOTE | 2018-11-26 07:30 | NUR ---
REPORT RECIEVED AND ROUNDING COMPLETE. PT SITTING UP IN BED. PT STATES HE IS FEELING MUCH BETTER. THIS MORNING. PT HAS A HISTORICAL SOCIETY DIRECTOR PUMP BUT REPORTS NO NEEDING IT BUT EVERY 4-5 HOURS. WIRELINE OPERATOR REPORT DURNING WIRELINE OPERATOR CARDIZEM HAS BEEN STOPPED DUE TO XAVIER ON MONITOR. DR. TAVARES OK'D THIS TO ME THIS MORNING WELL. PT STATES NO NEEDS AT THIS TIME. CALL LIGHT WITHIN REACH AND BED LOWEST POSITION. PT'S SLEEPING IN CHAIR AT BEDSIDE.
--- NOTE | 2018-11-26 09:38 | OP ---
PATIENT NAME: FRANCISCO SALAS MEDICAL RECORD: [id number] :42 LOCATION:D.M2 D.2112 ADMISSION DATE:11/16/18 SURGEON: KADEN QUIÑONEZ MD DATE OF OPERATION: 11/24/2018 PREOPERATIVE DIAGNOSIS: Hepatic flexure colon cancer. POSTOPERATIVE DIAGNOSES: Hepatic flexure colon cancer. Dense adhesions in the epigastrium as well as left upper quadrant. PROCEDURE: Hand-assisted laparoscopic surgery -- right hemicolectomy. SURGEON: Kaden Quiñonez MD MECHANICAL ENGINEERING INTERN: None. BLOOD LOSS: Minimal. ANESTHESIA: General. COMPLICATIONS: None. The risks, possible complications, and alternatives to the procedure were explained to the patient. He elects to proceed. The discussion specifically included, but was not limited to, bleeding requiring emergency reoperation, infection, intestinal injury, colostomy formation. OPERATIVE COURSE: The patient was conveyed to the operating room electively on 11/24/2018. General anesthesia was induced by the anesthesia staff. The abdomen was sterilely prepped and draped. Over Graham's point, a Veress needle was inserted. CO2 insufflation was begun. Once a sufficient pneumoperitoneum had been achieved, a 5-mm trocar was inserted in the epigastrium. Under direct internal vision utilizing television camera, a 5-mm trocar was inserted in the umbilicus. Another 5-mm trocar was inserted in the right lower quadrant. I inspected the left upper quadrant. It appeared that during insertion of the trocar that it had missed any intestinal structures. I did not attempt to take down the adhesions which were extensive. The right colon was grasped with Babcocks and I dissected in the right white line of Toldt with the laparoscopic EnSeal device. I folded the right colon medially. I took down the retroperitoneal attachments to the hepatic flexure. I swept down the duodenum. I then decided to place my GelPort. A transverse incision was accomplished residential between the anterior superior iliac spine and the right costal margin. Sharp dissection was carried down through skin and subcutaneous tissues. The external oblique aponeurosis was incised along the direction of its fibers. The internal oblique was . The peritoneal cavity was entered sharply. An Dick retractor was placed. A GelPort was placed on top of it. Under laparoscopic guidance, I did more dissection with my hand freeing up more of the colon, particularly at the hepatic flexure. My hand and the Gelport were removed. I exteriorized the right colon and hepatic flexure as well as a portion of the ileum. A window was created in the distal ileum. I stapled across the ileum here with a AYAKA-75 stapler. A window was created in the mesocolon distal to the mass, which was easily felt. I then stapled across the OPERATIVE REPORT [id number] FRANCISCO SALAS colon here with a AYAKA-75 stapler. The interpose mesentery was taken down with the Super Jaw EnSeal device. I swept down the right ureter as well as the duodenum and they were retracted during the entire operative procedure. The right colon specimen was opened up on the back table. This revealed that there was a wide margin both proximally and distally. The ileum and colon were placed in apposition side by side. Stay sutures of 3-0 Vicryl were placed. A small enterotomy and small colotomy were accomplished. Through the colotomy and enterotomy I advanced the AYAKA-75 stapler and then fired. The resulting intracolonic defect was closed with a single firing of the TA-60 stapler. I then oversewed this with a TA-60 staple line with imbricating 3-0 Vicryl sutures. The anastomosis was patent to at least 2 fingers. There was no twisting of the mesentery. No twisting of the small bowel. I irrigated in the right upper quadrant. There was no bleeding. The peritoneum and transversus abdominis muscles were closed with running #1 Vicryls. The internal oblique was closed with running #1 Vicryl. The external oblique was closed with a running #1 Vicryl. The deep adipose tissue was closed with interrupted 3-0 Vicryl sutures. The subcutaneous adipose tissue was closed with interrupted 3-0 Vicryls. At the trocar sites, they were closed with interrupted intracuticular 3-0 Vicryls. Benzoin and Steri-Strips were applied. The patient was then extubated and conveyed to post-anesthesia care unit where he was in stable condition. TRANSINT:[id number] Voice Confirmation ID: [id number] DOCUMENT ID: [id number] AKDEN QUIÑONEZ MD at 0938 CC: KETCHERAllen BARTON MD [id number] DICTATION DATE: 11/24/18 1506 MANUFACTURING MAINTENANCE MECHANIC: 11/24/18 1526 ADM IN [place] [id number] [place] [id number]
--- NOTE | 2018-11-26 10:56 | NUR ---
PT REPORTS HAD A BOWEL MOVEMENT. WENT IN A SAW BM IN [facility]. SMALL AMOUNT SOFT BROWN STOOL NOTIED. PT UP WALKING THE HALLS. NO NEEDS AT THIS TIME.
--- NOTE | 2018-11-26 15:40 | NUR ---
I have reviewed this patient and I concur with the Shift Assessment completed by the Licensed Practical Nurse today this shift.
--- NOTE | 2018-11-26 20:23 | NUR ---
EVENING ROUNDS COMPLETED. REPORT RECEIVED. PT SITTING UP IN BED WITH EYES OPEN, RR EVEN AND UNLABORED. NO S/S OF DISTRESS NOTED. PT REPORTS HAVING TENDERNESS AROUND LEFT UPPER ARM PIV SITE. THEREFORE PIV REMOVED AND GAUZE 2 BY 2 APPLIED. INTRODUCED SELF TO PT. PT DENIES FURTHER NEEDS AT THIS TIME. 70 NORMAL SINUS ON TELEMETRY. CALL LIGHT IN REACH. WILL CTM.
--- NOTE | 2018-11-27 01:45 | NUR ---
ADMINISTERED ORDERED ANALGESIC FOR PT COMPLAINTS OF PAIN IN RIGHT SIDE OF ABDOMEN, PT STATES PAIN OF A 6 ON A SCALE OF 0-10.
--- NOTE | 2018-11-27 02:04 | NUR ---
I have reviewed this patient and I concur with the Shift Assessment completed by the Licensed Practical Nurse today this shift.
[2018-11-27 03:55] VITALS: BP 139/60
[2018-11-27 04:47] LABS: BASOPHILS 0.1 % (0-2); EOSINOPHILS 3.7 % (0-7); HEMATOCRIT 28.5 % (42.0-54.0); HEMOGLOBIN 9.2 g/dL (13.5-17.5); IMMATURE GRANULOCYTES 0.1 % (0-5); LYMPHOCYTES 16.9 % (15-50); MCH 28.7 pg (26.0-34.0); MCHC 32.3 g/dL (31.0-37.0); MEAN PLATELET VOLUME 8.9 fL (7.4-10.4); MONOCYTES 13.5 % (2-11); NEUTROPHILS 65.7 % (40-80); PLATELET COUNT 186 10x3/uL (130-400); RBC 3.21 10x6/uL (4.20-6.10); RDW 15.6 % (11.5-14.5)
[2018-11-27 04:50] LABS: MCV 88.8 fL (80.0-100.0); WBC 7.3 10x3/uL (4.8-10.8)
[2018-11-27 04:58] LABS: ANION GAP 9.7 mmol/L (8-16); CARBON DIOXIDE 26.9 mmol/L (21.0-32.0); CREATININE - SERUM 1.2 mg/dL (0.6-1.3); POTASSIUM - SERUM 3.6 mmol/L (3.5-5.1)
--- NOTE | 2018-11-27 07:36 | NUR ---
REPORT RECIEVED AND MORNING ROUNDING COMPLETE. PT LAYING IN BED THIS MORNING SUPINE POSITION EYES CLOSED BREATHING EVEN AND UNLABORED. NO S/ SX OF DITRESS. CALL LIGHT WITHIN REACH AND BED IN LOWEST POSITION.
[2018-11-27 08:10] VITALS: BP 142/58
--- NOTE | 2018-11-27 11:30 | NUR ---
PT REPORTS ANOTHER BM AND LOTS OF GAS THIS MORNING.
[2018-11-27] MEDS ORDERED: HYDROCODON-ACE1 EAC7 PO (12:29)
--- NOTE | 2018-11-27 13:18 | NUR ---
I have reviewed this patient and I concur with the Shift Assessment completed by the Licensed Practical Nurse today this shift.
--- NOTE | 2018-11-27 13:39 | NUR ---
PT TOOK A SHOWER AND IS WAITING SURGERY TO COME AND TALK WITH HIM HE IS READY TO GO HOME.
[2018-11-27 16:20] VITALS: BP 136/70
--- NOTE | 2018-11-27 18:26 | NUR ---
PT DISCHARGED. REMOVED PT'S PIV FROM LEFT FOREARM. NO BLEEDING NOTED. PT STATED HE UNDERSTOOD ALL OF HIS DISCHARGE PLANS AND SIGNED HIS DISCHAGRE SHEETS. ASSISTED PT TO FRONT DOOR TO MEET HIS . NO OTHER NEEDS AT THIS TIME.
--- NOTE | 2018-11-28 08:45 | MORECARE ---
CASE MANAGEMENT DISCHARGE SUMMARY PATIENT: FRANCISCO SALAS UNIT: [id number] ADM DATE: 11/16/18 AGE: 78 : 44 SEX: M ROOM/BED: D.6833 AUTHOR: SILVIADOC PHYSICIAN: REFERRING PHYSICIAN: LILIBETH RODRÍGUEZ MD DATE OF SERVICE: 11/28/18 Discharge Plan Patient Name: FRANCISCO SALAS Facility: [facility]:[place] : 1940 Planned Disposition: Home Anticipated Discharge Date: 11/27/18 Discharge Date: 11/27/2018 Expected LOS: 11 Initial Reviewer: [email or web address] Initial Review Date: 11/16/2018 Generated: 11/28/18 9:45 am DCP- Discharge Planning Updated by [email or web address]: Bryanna Jansen on 11/16/18 5:[address] Patient Name: FRANCISCO SALAS Admission Status: ER Accout number: [id number] Admission Date: 11-16-2018 : 1940 Admission Diagnosis: Attending: LILIBETH ANAYA Current LOS: 1 Anticipated DC Date: Planned Disposition: Primary Insurance: MEDICARE A & B Discharge Planning Comments: CM met with patient and spouse at bedside. Patient states he lives at home with his spouse (Sana). He plans on returning to their home upon discharge. He states he feels safe at his home. He states he will have family drive him home upon discharge. He denies any discharge needs at this time. CM will continue to follow and assist as needed with discharge planning / needs. Housing Director: Bryanna Jansen DCPIA - Discharge Planning Initial Assessment Updated by [email or web address]: Bryanna Jansen on 11/16/18 6:22 pm * Is the patient Alert and Oriented? Yes * How many steps to enter\exit or inside your home? * PCP LEVY * Pharmacy [facility] * Preadmission Environment Home with Family * ADLs Independent * Equipment None * List name and contact numbers for known caregivers / representatives who currently or will assist patient after discharge: SANA SALAS - SPOUSE - [phone], * Verbal permission to speak to the caregivers and representatives has been obtained from the patient. Yes * Community resources currently utilized None * Additional services required to return to the preadmission environment? No * Can the patient safely return to the preadmission environment? Yes * Has this patient been hospitalized within the prior 30 days at any hospital? No Last DP export: 11/16/18 5:27 pm Patient Name: FRANCISCO SALAS Page [id number] at 0845 All edits/amendments must be made on the electronic document DICTATION DATE: 11/28/18843 DIRECTOR MOBILE: DM 11/28/18843 RPT#: [id number] DC DATE:11/27/18 STATUS: DIS IN [facility] [address] [place] [address] END OF REPORT
== END 2018-11-27 18:30 | disposition home or self-care (01) | DRG 329 ==
LOC: D.ER 09:09 → D.ICU 12:13 → D.M2 12:13 → D.EDHOLD 12:13 → D.ICU 13:14 → D.M2 11-17 14:44
PROVIDERS: Emergency Medicine; Family Medicine; Internal Medicine Gastroenterology; Internal Medicine Nephrology; Surgery; ADMIT Family Medicine Adult Medicine; ATTEND Family Medicine Adult Medicine
PROC: 0DB98ZX Excision of Duodenum, Via Natural or Artificial Opening Endoscopic, Diagnostic (ICD-10-PCS; 2018-11-16)
PROC: 0DB68ZX Excision of Stomach, Via Natural or Artificial Opening Endoscopic, Diagnostic (ICD-10-PCS; 2018-11-16)
PROC: 0DBN8ZZ Excision of Sigmoid Colon, Via Natural or Artificial Opening Endoscopic (ICD-10-PCS; 2018-11-19)
PROC: 0DBL8ZX Excision of Transverse Colon, Via Natural or Artificial Opening Endoscopic, Diagnostic (ICD-10-PCS; 2018-11-19)
PROC: 0DTF0ZZ Resection of Right Large Intestine, Open Approach (ICD-10-PCS; principal; 2018-11-24 10:00)
DX: C18.3 Malignant neoplasm of hepatic flexure (principal); K57.91 Diverticulosis of intestine, part unspecified, without perforation or abscess with bleeding; D62 Acute posthemorrhagic anemia; K26.9 Duodenal ulcer, unspecified as acute or chronic, without hemorrhage or perforation; K44.9 Diaphragmatic hernia without obstruction or gangrene; K29.70 Gastritis, unspecified, without bleeding; K31.819 Angiodysplasia of stomach and duodenum without bleeding; I25.10 Atherosclerotic heart disease of native coronary artery without angina pectoris; I48.91 Unspecified atrial fibrillation; Z85.46 Personal history of malignant neoplasm of prostate; K57.90 Diverticulosis of intestine, part unspecified, without perforation or abscess without bleeding; K63.5 Polyp of colon; K62.1 Rectal polyp; K64.4 Residual hemorrhoidal skin tags; K64.8 Other hemorrhoids; K66.0 Peritoneal adhesions (postprocedural) (postinfection); E87.6 Hypokalemia

== ENCOUNTER → 2018-12-26 09:12 | Outpatient (CLI) | payer MEDICARE, OTHER ==
[2018-11-20 10:25] VITALS: BMI 22.4
[~2018-12-26 09:12] MED LIST changes: -DOCUSATE S50 MG/5 ML PO; +ELIQUIS5 MG PO; +FEROCON CAPSUL1 EACH; +FERROUS SULFAT325 MG PO; +HYDROCODON-ACE1 EAC7 PO; +LIPITOR20 MG PO; +PEPCID AC20 MG PO; +STOOL SOFTENER100 M1 PO
== END | disposition home or self-care (01) ==
LOC: D.MRI 09:12
PROVIDERS: ATTEND Internal Medicine Hematology & Oncology
DX: C18.9 Malignant neoplasm of colon, unspecified (principal)

== ENCOUNTER 2019-01-04 05:41 | Day surgery (SDC) | payer MEDICARE, OTHER ==
[~2019-01-04] VITALS: Ht 175.3 cm; Wt 68.0 kg
[2019-01-04 06:05] LABS: BASOPHILS 0.5 % (0-2); EOSINOPHILS 3.9 % (0-7); HEMATOCRIT 39.5 % (42.0-54.0); HEMOGLOBIN 13.4 g/dL (13.5-17.5); LYMPHOCYTES 38.7 % (15-50); MCH 29.1 pg (26.0-34.0); MCHC 33.9 g/dL (31.0-37.0); MCV 85.7 fL (80.0-100.0); MEAN PLATELET VOLUME 9.5 fL (7.4-10.4); MONOCYTES 12.6 % (2-11); NEUTROPHILS 44.3 % (40-80); PLATELET COUNT 160 10x3/uL (130-400); RBC 4.61 10x6/uL (4.20-6.10); RDW 15.2 % (11.5-14.5); WBC 3.8 10x3/uL (4.8-10.8)
[2019-01-04 06:19] LABS: ANION GAP 11.7 mmol/L (8-16); CALCIUM 9.1 mg/dL (8.5-10.1); CARBON DIOXIDE 28.4 mmol/L (21.0-32.0); CREATININE - SERUM 1.1 mg/dL (0.6-1.3); POTASSIUM - SERUM 4.1 mmol/L (3.5-5.1)
[2019-01-04 06:21] LABS: APTT 29.6 SECONDS (22.8-39.4); INR 1.03 (0.85-1.17)
[2019-01-04 07:27] VITALS: BP 125/46; Ht 175.3 cm; Wt 68.0 kg
--- NOTE | 2019-01-04 17:51 | OP ---
PATIENT NAME: FRANCISCO SALAS MEDICAL RECORD: [id number] :[birth year] LOCATION:D.[facility] ADMISSION DATE: SURGEON: KADEN QUIÑONEZ MD DATE OF OPERATION: 01/04/2019 PREOPERATIVE DIAGNOSIS: Colon cancer in need of IV access for chemotherapy. POSTOPERATIVE DIAGNOSIS: Colon cancer in need of IV access for chemotherapy. PROCEDURE: 1. Placement of left-sided PowerPort under fluoroscopic guidance. 2. Immediate surgeon interpretation of the fluoroscopic images. SURGEON: Kaden Quiñonez MD [employer] OPERATOR: None. BLOOD LOSS: Minimal. ANESTHESIA: General. COMPLICATIONS: None. No radiologist was present for this procedure. Static fluoroscopic images were obtained and are kept in the PACS system. The surgeon interpretation of the radiographic images is dictated within the body of this operative note. OPERATIVE COURSE: The patient was conveyed to the operating room electively on 01/04/2019. General anesthesia was induced by the anesthesia staff. The left chest and left neck were sterilely prepped and draped. Under ultrasonographic guidance, I percutaneously accessed the left internal jugular vein easily. A guidewire advanced easily. This was visualized under fluoroscopy. A transverse incision was accomplished in the right anterior superior infraclavicular chest. A sharp dissection was carried down to the pectoralis fascia. A subcutaneous pocket was created in a caudad direction. Incision was accomplished around the guidewire. I tunneled a PowerPort catheter from the port pocket incision to the neck incision. Over the wire, a dilator sheath was advanced and this was visualized fluoroscopically. The dilator and wire were removed. Through the sheath, I advanced the PowerPort catheter. The Peel-Away sheath was then removed. Under fluoroscopy, I pulled back on the PowerPort catheter so that its tip was at the cavoatrial junction. I shortened the PowerPort catheter and attached to the PowerPort. The locking device was firmly engaged. The port was placed in the port pocket. It was sutured with 3-point fixation utilizing a 3-0 Prolene suture. I irrigated the port pocket with normal saline. The subdermis at the chest incision was closed with interrupted 3-0 Vicryls. The skin was closed with a running intracuticular 4-0 Vicryl. The neck incision was closed with interrupted intracuticular 3-0 Vicryls. I then accessed the port. It accessed easily. It aspirated dark, nonpulsatile blood and flushed easily with heparinized saline. I then deaccessed the port. Sterile dressings were applied. OPERATIVE REPORT [id number] FRANCISCO SALAS The patient was then extubated and conveyed to the post-anesthesia care unit where he was in stable condition. TRANSINT:[id number] Voice Confirmation ID: [id number] DOCUMENT ID: [id number] KADEN QUIÑONEZ MD at 1751 CC: ELLIS MORRIS MD, BENJAMIN MICHELLE MD, JERARDO LEVY and CECELIA,[id number] DICTATION DATE: 01/04/19 0947 UPPER LEATHER SORTER: 01/04/19 1026 [facility] 01/04/19 [address] [place] [address]
== END 2019-01-04 12:10 | disposition home or self-care (01) ==
LOC: D.OPS 05:41 → D.PAN 08:00 → D.OPS 12:10
PROVIDERS: Anesthesiology; ATTEND Surgery
DX: C18.9 Malignant neoplasm of colon, unspecified (principal); Z01.812 Encounter for preprocedural laboratory examination

== ENCOUNTER → 2020-10-03 07:34 | Outpatient (CLI) | payer MEDICARE ==
[2019-01-04 07:27] VITALS: BMI 22.2
== END | disposition home or self-care (01) ==
LOC: D.NM 07:34
PROVIDERS: ATTEND Clinical Nurse Specialist Family Health
DX: R22.2 Localized swelling, mass and lump, trunk (principal)

== ENCOUNTER → 2020-10-09 09:18 | Outpatient (CLI) | payer MEDICARE ==
[2019-01-04 07:27] VITALS: BMI 22.2
== END | disposition home or self-care (01) ==
LOC: D.RAD 09:18
PROVIDERS: ATTEND Internal Medicine Hematology & Oncology
DX: M46.06 Spinal enthesopathy, lumbar region (principal); Z85.46 Personal history of malignant neoplasm of prostate; C18.9 Malignant neoplasm of colon, unspecified

== ENCOUNTER 2020-10-15 11:05 | Day surgery (SDC) | payer MEDICARE ==
--- NOTE | 2020-10-14 12:49 | NUR ---
CONFIRMED PT APPT FOR 10/15/20 NPO: PT VERBALIZED UNDERSTANDING TO TAKE MORNING MEDS WITH SIP OF WATER ANIMAL STUNNER: YES ARRIVAL TIME: 1030 THINNERS: ELIQUIS AND ASA BOTH STOPPED 3 DAYS AGO
[~2020-10-15] VITALS: Ht 175.3 cm; Wt 75.0 kg
--- NOTE | ~2020-10-15 | HEMODYNAMI ---
PATIENT:FRANCISCO SALAS MEDICAL RECORD: [id number] : 44 LOCATION:[facility] ADMISSION DATE: 10/15/20 Generatedon:114:19 Patient name: FRANCISCO SALAS Patient #: [id number] : 1940 Date of study: 10/15/2020 Page: Of Hemodynamic Procedure Report Patient Data Patient Demographics Procedure consent was obtained First Name: FRANCISCO Gender: Male Last Name: MARITZA : 1940 [facility] Initial: ERICH Age: 80 year(s) Patient #: [id number] Race: SSN: [id number] Additional ID: [id number] Contact details [address]: [address] [place] [address] State: [place] City: [place] Zip code: [address] Past Medical History Allergies: No known allergies Admission Admission Data Admission Date: 10/15/2020 Admission Time: 11:00 Height (in.): 69 BSA: 1.9 (m2) Height (cm.): 175.26 BMI: 24.37 (kg/m2) Weight (lbs.): 165 Weight (kg.): 74.84 Procedure Procedure Types Cath Procedure Peripheral Cath Diagnostic Procedure Bone Biopsy Deep Procedure Description Procedure Date Procedure Date: 10/15/2020 Procedure Start Time: 13:51 Procedure Staff Name Function Hilario Nielsen MD Performing Physician Latoya Hurtado RT Children Librarian Alba LOVE RN Nurse Merrick Cope RT Scrub Procedure Medications Medication Administration Route Dosage Heparin Flush Bag added to field 1 bags (1000units/500ml NS) Lidocaine 1% added to field 20 Fentanyl I.V. 50 mcg Versed I.V. 1 mg Fentanyl I.V. 25 mcg Versed I.V. 0.5 mg Fentanyl I.V. 25 mcg Versed I.V. 0.5 mg Hemodynamics Rest BSA: 1.9 (m2) O2 Consumption: Estimated: 212.8 (ml/min) O2 Consumption indexed: Estimated:112 (ml/min/m) Heart Rate: 63 (bpm) Snapshots Pre Cath Intra NCS Post Cath Vital Signs Time Heart Resp SPO2 etCO2 NIBP (mmHg) Rhythm Pain Sedation Rate (ipm) (%) (mmHg) Status Level (bpm) 13:37:48 63 14 100 30.7 Measuring NSR 0 (11) 10(A) , No pain 13:39:12 60 9 100 35.2 Time NSR 0 (11) 10(A) Exceeded , No pain 13:43:38 60 18 100 32.2 154/80(101) NSR 0 (11) 10(A) , No pain 13:47:57 59 20 100 35.2 161/81(121) NSR 0 (11) 9(A) , No pain 13:52:17 60 17 100 30.7 156/77(111) NSR 0 (11) 9(A) , No pain 13:56:37 60 16 100 32.9 151/71(108) NSR 0 (11) 8(A) , No pain 14:00:55 59 19 100 32.2 151/75(102) NSR 0 (11) 8(A) , No pain 14:05:13 59 15 100 32.2 147/72(101) NSR 0 (11) 8(A) , No pain 14:09:29 58 15 100 32.2 138/76(91) NSR 0 (11) 9(A) , No pain 14:13:43 58 16 100 30.7 142/77(98) NSR 0 (11) 10(A) , No pain 14:17:57 60 6 100 22.4 146/78(121) NSR 0 (11) 10(A) , No pain Medications Time Medication Route Dose Verified Delivered Reason Notes Effe ctiveness by by 13:50:32 Heparin Flush added 1 Hilario Rich used for Bag to bags Morales Nielsen procedure (1000units/500ml field MD [facility] NS) 13:50:46 Lidocaine 1% added 20ml Hilario Rich for local to vial Morales Nielsen anesthetic field MD [facility] 13:52:59 Fentanyl I.V. 50 Hilario Rich for mcg Morales Nielsen sedation MD [facility] 13:53:05 Versed I.V. 1 mg Hilario Rich for Morales bermeo MD, MD 14:02:35 Fentanyl I.V. 25 Hilario Rich for mcg Morales bermeo MD, MD 14:02:46 Versed I.V. 0.5 Hilario Rich for mg Morales bermeo MD, MD 14:12:22 Fentanyl I.V. 25 Hilario Rich [place] [facility] [place]ales bermeo MD, MD 14:12:29 Versed I.V. 0.5 Hilario Rich for mg Morales bermoe MD, MD Procedure Log Time Note 13:05:50 Patient Height : 69 inches 13:05:57 Patient Weight : 165 lbs 13:06:34 Use device set IR Diagnostic 13:06:36 Tegaderm 4 x 4 ([id number]) opened to sterile field. 13:06:37 Sterile Angiographic Pack opened to sterile field. 13:06:38 Bag Decanter (2002S) opened to sterile field. 13:06:44 - 13:21:23 Time tracking: Regular hours (M-F 7:00 - 5:00) 13:21:31 Plan of Care:Hemodynamics will remain stable., Cardiac rhythm will remain stable., Comfort level will be maintained., Respiratory function will remain adequate., Patient/ family verbilizes understanding of procedure., Procedure tolerated without complication., Recovers from procedure without complications.. 13:21:42 Patient received from Outpatients to IR Alert and oriented. Tansferred to table in Prone position. 13:21:45 Signed procedure consent form obtained from patient. 13:21:52 H&P Date Dictated: 10/15/2020 Within 30 days and on chart., H&P Addendum completed by physician on day of procedure. (MUST COMPLETE FOR ALL OUTPATIENTS). 13:21:53 Pre-procedure instructions explained to patient. 13:21:54 Pre-op teaching completed and patient verbalized understanding. 13:21:56 Family in patients room. 13:21:59 Patient NPO since Midnight. 13:22:09 Patient allergic to No known allergies 13:22:15 Is patient on blood thinner?Yes, but has been off for 3 days 13:22:44 Patient diabetic? No. 13:22:50 - 13:22:51 ----Pre-sedation anethsthesia assessment.---- 13::54 Previous problem with sedation/anesthesia? No ? 13:22:58 Snore? No 13:23:00 Sleep apnea? No 13:23:03 Deviated septum? No 13:23:06 Opens mouth fully? Yes 13:23:08 Sticks out tongue? Yes 13:23:16 Airway obstruction? Yes heart disease 13:23:20 Dentures? No ? 13:23:22 - 13:23:43 Alarms reviewed by Cheli Encarnacion 13:35:55 ECG and BP/O2 sat monitors applied to patient. 13:35:59 Vital chart was started 13:36:12 Baseline sample Acquired. 13:36:18 Full Disclosure recording started 13:36:19 - 13:37:38 Lumbar area was prepped with dura-prep and draped in sterile fashion 13:47:25 Physician arrived 13:47:26 --------ALL STOP TIME OUT------ 13:47:27 Final Timeout: patient, procedure, and site verified with staff and physician. All members of the team are in agreement. 13:50:32 Heparin Flush Bag (1000units/500ml NS) 1 bags added to field was administered by Hilario Nielsen MD; used for procedure; Verbal order read back and verified. 13:50:46 Lidocaine 1% 20ml vial added to field was administered by Hilario atwood MD; for local anesthetic; Verbal order read back and verified. 13:51:03 Procedure started. 13:51:09 Local anesthetic to Lumbar area with Lidocaine 1% by Hilario Nielsen MD.INITIAL ACCESS ONLY 13:52:59 Fentanyl 50 mcg I.V. was administered by Hilario Nielsen MD; for sedation; Verbal order read back and verified. 13:53:05 Versed 1 mg I.V. was administered by Hilario Nielsen MD; for sedation; Verbal order read back and verified. 14:02:35 Fentanyl 25 mcg I.V. was administered by Hilario Nielsen MD; for sedation; Verbal order read back and verified. 14:02:46 Versed 0.5 mg I.V. was administered by Hilario Nielsen MD; for sedation; Verbal order read back and verified. 14:12:22 Fentanyl 25 mcg I.V. was administered by Hilario Nielsen MD; for sedation; Verbal order read back and verified. 14:12:29 Versed 0.5 mg I.V. was administered by Hilario Nielsen MD; for sedation; Verbal order read back and verified. 14:16:41 Procedure ended.(Physican Out) 14:17:22 Procedure and supply charges have been captured, reviewed, submitted an d are correct. 14:18:24 Report given to Outpatients. 14:19:19 Vital chart was stopped Device Usage Item Name Manufacture Quantity Catalog Hospital Part Current Minimal Lot# / Number Charge Number Stock Stock Serial# Code Tegaderm 4 x 3M 1 [id number] 4 (1626W) Sterile Cardinal 1 [id number] Angiographic Health Pack Bag Decanter [employer] 1 [id number] () [employer] Signature Audit [place] Stage Time Signature Unsigned Intra-Procedure 10/15/2020 Latoya Hurtado 2:19:16 PM RT(R) [facility] [address] [place] [address]
[2020-10-15 11:06] LABS: BASOPHILS 0.3 % (0-2); HEMATOCRIT 51.1 % (42.0-54.0); HEMOGLOBIN 16.6 g/dL (13.5-17.5); IMMATURE GRANULOCYTES 0.4 % (0-5); LYMPHOCYTE ABS# 1.62 10x3/uL (1.32-3.57); LYMPHOCYTES 22.1 % (15-50); MCH 28.9 pg (26.0-34.0); MCHC 32.5 g/dL (31.0-37.0); MONOCYTES 11.6 % (2-11); NEUTROPHIL ABS# 4.73 10x3/uL (1.78-5.38); NEUTROPHILS 64.6 % (40-80); RBC 5.74 10x6/uL (4.20-6.10); RDW 16.3 % (11.5-14.5); WBC 7.3 10x3/uL (4.8-10.8)
[2020-10-15 11:15] LABS: PLATELET COUNT 199 10x3/uL (130-400)
[2020-10-15 11:19] LABS: ANION GAP 7.7 mmol/L (8-16); CALCIUM 9.1 mg/dL (8.5-10.1); CARBON DIOXIDE 31.6 mmol/L (21.0-32.0); CREATININE - SERUM 1.2 mg/dL (0.6-1.3); POTASSIUM - SERUM 4.3 mmol/L (3.5-5.1)
[2020-10-15 11:20] LABS: APTT 24.5 SECONDS (22.8-39.4); INR 1.06 (0.85-1.17); PROTIME 12.8 SECONDS (11.6-15.0)
[2020-10-15] MEDS ORDERED: NORVASC5 MG PO (11:26)
[2020-10-15] MEDS ORDERED: BAYER CHEWABLE81 MG PO (11:26)
[2020-10-15] MEDS ORDERED: MULTI-DAY VITAM1 TAB PO (11:27)
[2020-10-15 11:31] VITALS: BP 135/91; Ht 175.3 cm; Wt 75.0 kg
--- NOTE | 2020-10-15 14:41 | NUR ---
1435 BLOOD INFUSING WELL, LEFT CHEST PORT. DENIES PROBLEMS, V.S. WNL, RATE INCREASED TO 250/CC/HR. PT. ON 2L NC DUE TO LUNG CANCER.
--- NOTE | 2020-10-15 15:08 | NUR ---
5064 TO 4009 VIA BED, AT SIDE, REPORT FROM SPECIALS NURSE. CALL LIGHT AT BEDSIDE. DIET COLA SERVED, FINGER FOOD DIET ORDERED. 1500 PT. ASKED FOR SOMETHING FOR PAIN, NORCO 5MG PO GIVEN, FINGER FOOD DIET LEFT AT BEDSIDE. PT. STATES PAIN IS 5/10.
--- NOTE | 2020-10-15 15:11 | NUR ---
1505 REMINDED PT. BEDREST FOR NEXT 2 HOURS, URINAL PROVIDED.
--- NOTE | 2020-10-15 15:33 | NUR ---
1530 EATING CHIPS, STATES PAIN IS NOT WORSE AND SOME BETTER. NO DRAINAGE NOTED.
--- NOTE | 2020-10-15 17:03 | NUR ---
1625 DR. BENNETT ROUNDS ON PT. QUESTIONS ASKED AND ANSWERED.
== END 2020-10-15 17:00 | disposition home or self-care (01) ==
LOC: D.SP 11:05 → D.RAD 13:00 → D.SP 17:00
PROVIDERS: Radiology Diagnostic Radiology; ATTEND Internal Medicine Hematology & Oncology
DX: C18.9 Malignant neoplasm of colon, unspecified (principal); M25.50 Pain in unspecified joint; M46.06 Spinal enthesopathy, lumbar region; Z85.46 Personal history of malignant neoplasm of prostate; I25.10 Atherosclerotic heart disease of native coronary artery without angina pectoris; E23.0 Hypopituitarism; R11.0 Nausea; K21.9 Gastro-esophageal reflux disease without esophagitis; D70.8 Other neutropenia